=== PATIENT | female | born 1945 | race Caucasian/White ===

== ENCOUNTER 2016-12-06 16:33 | Inpatient (IN) ==
--- NOTE | 2016-12-06 16:49 | Emergency Department Note ---
Disposition Clinical Impression: Deep vein thrombosis of lower extremity, Pneumonia, Dehydration, Anemia, GI bleed, Frail elderly, History of treatment for malignancy, CAD (coronary artery disease) Disposition: Admitted As Inpatient Referrals: NO,PCP [Primary Care Provider] - Forms: ED Satisfaction Letter General Adult HPI - General Chief complaint: ED Extremity Problem,Nontraumatic Stated complaint: ble Time Seen by Provider: 12/06/16 16:49 Source: EMS Limitations: no limitations - History of Present Illness HPI Narrative: 70-year-old female with history of glioblastoma and brain surgery reports to the emergency department complaining of right lower extremity swelling. There is concern for possible DVT. The patient has not fallen or injured her right leg. There is no history of chest pain shortness of breath or coughing up blood. The patient used to take Lasix but does not now. There is no overt history of CHF. There is no history of anticoagulant therapy currently. The patient has had no abdominal pain vomiting or diarrhea. There is no history of coughing up blood or syncope. Chronic back pain is reported. The patient was seen in the ED yesterday and evaluated for her back pain. There is no history of confusion or difficulty moving the arms or legs independently. No urinary symptoms are reported or noted. The main concern today is the patient has had right lower extremity edema which has been progressive. They consulted with their [facility] physician who recommended the patient come to an ED. [facility] is currently on diversion so the patient was brought here via EMS. The patient has also had recurrent diarrhea no recent antibiotics, her stools have been black, she is noted to take iron. Pain Scale: 5 - Related Data Home Medications Medication Instructions Recorded Confirmed Acetaminophen [Tylenol] 500 - 1,000 mg PO Q6H PRN 12/06/16 12/06/16 Citalopram [CeleXA] 20 mg PO DAILY 12/06/16 12/06/16 Dexamethasone 2 mg PO BID 12/06/16 12/06/16 Dexlansoprazole [Dexilant] 30 mg PO DAILY 12/06/16 12/06/16 DiphenhydraMINE [Benadryl] 25 mg PO Q6HR PRN 12/06/16 12/06/16 Fenofibrate Nanocrystallized 145 mg PO HS 12/06/16 12/06/16 [Fenofibrate] Ferrous Sulfate 324 mg PO TIDWM 12/06/16 12/06/16 Gabapentin [Neurontin] 100 mg PO BID 12/06/16 12/06/16 Hydrochlorothiazide 25 mg PO DAILY 12/06/16 12/06/16 LORazepam [Ativan] 0.5 mg PO TID 12/06/16 12/06/16 LevETIRAcetam [Keppra] 1,000 mg PO BID 12/06/16 12/06/16 LevETIRAcetam [Keppra] 250 mg PO BID 12/06/16 12/06/16 Lisinopril [Zestril] 40 mg PO DAILY 12/06/16 12/06/16 Lomustine [Gleostine] 40 mg PO Q42D 12/06/16 12/06/16 Lomustine [Gleostine] 100 mg PO Q42D 12/06/16 12/06/16 Loperamide HCl [Imodium A-D] 2 mg PO Q4H PRN 12/06/16 12/06/16 OxyCODONE Immed Rel [Roxicodone 5 5 mg PO Q4HR PRN 12/06/16 12/06/16 MG] Oxycodone HCl/Acetaminophen 1 - 2 each PO Q4H PRN 12/06/16 12/06/16 [Percocet 5-325 mg Tablet] Polyethylene Glycol 3350 [MiraLAX 1 scoop PO DAILY 12/06/16 12/06/16 Powder Bulk 17.9 Oz] Simvastatin [Zocor] 40 mg PO QPM 12/06/16 12/06/16 Tizanidine HCl 4 mg PO TID PRN 12/06/16 12/06/16 Triamcinolone Acet 0.1% CRM 1 appl TP BID 12/06/16 12/06/16 [Kenalog] Allergies Allergy/AdvReac Type Severity Reaction Status Date / Time aspirin [From Norgesic] AdvReac Hallucinati Verified 12/06/16 16:48 ng caffeine [From Norgesic] AdvReac Hallucinati Verified 12/06/16 16:48 ng latex AdvReac Itching Verified 03/15/16 20:33 orphenadrine [From Norgesic] AdvReac Hallucinati Verified 12/06/16 16:48 ng Sulfa (Sulfonamide AdvReac Hives Verified 03/15/16 20:32 Antibiotics) All systems ED: reviewed and negative except as stated. Past Medical History - Past Medical History Medical history: Reports: cancer, hyperlipidemia, hypertension, myocardial infarction Psychiatric history: Reports: anxiety, bipolar, depression - Social History Smoking Status: Current every day smoker Smokeless Tobacco Status: No Alcohol use: Reports: none Drug use: Reports: none Physical Exam - General Limitations: no limitations General appearance: alert, in no apparent distress - Head Head exam: other (Patient is wearing a head covering) - Eye Eye exam: Present: normal appearance, PERRL, EOMI. Absent: scleral icterus, conjunctival injection, miosis, mydriasis - ENT ENT exam: normal exam, normal oropharynx, mucous membranes moist, TM's normal bilaterally, normal external ear exam - Neck Neck exam: Present: normal inspection, full ROM, trachea midline - Chest Chest inspection: Present: symmetric chest wall rise. Absent: tenderness - Respiratory Respiratory exam: Present: normal lung sounds bilaterally. Absent: respiratory distress - Cardiovascular Cardiovascular exam: Present: regular rate, normal rhythm, normal heart sounds - Abdominal Exam Abdominal exam: Present: soft, Non-Tender, normal bowel sounds. Absent: tenderness, distention, guarding, rebound, rigidity - Rectal Exam Hospitality Director present during exam: Yes Rectal exam: Present: normal rectal tone, black stool - Extremities Exam Extremities exam: Present: full ROM, tenderness, normal capillary refill, calf tenderness, other (All 4 extremities are warm and well perfused without cyanosis there is a full range of motion in the major joints without evidence of trauma no evidence of neuromuscular or neurovascular compromise. The right lower extremity is swollen versus the left.) - Expanded Lower Extremity Exam Lower leg exam: Present: Homans' sign (Right side pain and swelling no redness) Neurovascular/Tendon exam: Absent: motor deficit, sensory deficit, tendon deficit, extremity cold to touch, pallor - Back Exam Back exam: Present: normal inspection, full ROM, paraspinal tenderness. Absent : CVA tenderness (R), CVA tenderness (L), vertebral tenderness - Neurological Exam Neurological exam: Present: alert, oriented X3, CN II-XII intact. Absent: motor sensory deficit - Psychiatric Psychiatric exam: Present: normal affect, normal mood - Skin Skin exam: Present: warm, dry, intact, normal color. Absent: rash, cyanosis, diaphoresis, erythema, pallor, mottled Course Vital Signs Temperature 98.7 F 12/06/16 16:35 Pulse Rate 93 12/06/16 16:35 Respiratory Rate 11 12/06/16 16:35 Blood Pressure 90/53 12/06/16 16:35 O2 Sat by Pulse Oximetry 96 12/06/16 16:35 Temperature 98.7 F 12/06/16 16:35 Pulse Rate 93 12/06/16 16:35 Respiratory Rate 11 12/06/16 16:35 Blood Pressure 90/53 12/06/16 16:35 O2 Sat by Pulse Oximetry 96 12/06/16 16:35 Oxygen Delivery Oxygen Delivery Room Air Medical Decision Making - MDM Narrative Medical decision making narrative: The patient has a long opacity on chest x-ray, blood cultures were sent, antibiotic ordered. The patient's testing indicates dehydration, she was hypotensive and has an elevated BUN and creatinine versus yesterday, IV fluids were given. The patient's DVT study indicates right lower extremity DVT. The patient is anemic, and complains of black stool, she was heme positive. Gastritis or GI bleed is certainly in the differential. Protonix IV was ordered. Based on the patient's old will acute findings including dehydration, acute kidney injury, possible GI bleed, DVT, anemia, lung infiltrate concerning for pneumonitis, age, and history of malignancy, I thought it would be appropriate to admit the patient to the hospital. The patient is currently stable. I have consulted with the hospitalist on-call. - Lab Data Lab results reviewed: Yes I reviewed the patient's lab results. Result diagrams: 12/06/16 17:10 12/06/16 17:10 Lab Results 12/06/16 12/06/16 12/06/16 Range/Units 17:10 17:10 17:10 WBC 11.6 H (4.3-11.1) K/mcL RBC 3.20 L (3.82-4.97) M/mcL Hgb 10.3 L (11.5-15.4) g/dL Hct 30.1 L (35.3-44.9) % MCV 94.1 (83.0-100.0) fL MCH 32.2 (28.0-33.3) pg MCHC 34.2 (31.6-35.5) g/dL RDW 15.9 H (11.5-14.5) % Plt Count 189 (140-400) K/mcL MPV 10.2 (9.4-12.4) fL Immature Gran % 0.7 (0-4) % Seg Neutrophils % 87.1 % Lymphocytes % 4.0 % Monocytes % 7.8 % Eosinophils % 0.3 % Basophils % 0.1 % Neutrophils # 10.2 H (1.6-8.9) K/mcL Lymphocytes # 0.5 L (0.6-4.6) K/mcL Monocytes # 0.9 (0.0-1.3) K/mcL Eosinophils # 0.0 (0.0-0.6) K/mcL Basophils # 0.0 (0.0-0.2) K/mcL PT (9.4-12.1) Seconds INR APTT (26.0-36.0) Seconds Sodium 133 L (136-145) mEq/L Potassium 3.8 (3.5-4.5) mEq/L Chloride 99 (98-109) mEq/L Carbon Dioxide 23 (19-29) mEq/L BUN 38 H D (7-20) mg/dL Creatinine 2.27 H D (0.57-1.11) mg/dL Est GFR ( Amer) 26 L (> 60) Est GFR (Non-Af Amer) 21 L (> 60) BUN/Creatinine Ratio 17 (6-26) Glucose 114 H (70-99) mg/dL Calculated Osmolality 286 (280-300) Lactic Acid (0.5-2.2) mmol/L Calcium 9.3 (8.6-10.8) mg/dL Total Bilirubin 0.5 (0.2-1.2) mg/dL Direct Bilirubin 0.2 (0.0-0.5) mg/dL Indirect Bilirubin 0.3 (0.0-1.2) mg/dL AST 15 (5-34) Units/L ALT 20 (0-55) Units/L Alkaline Phosphatase 58 (38-126) Units/L Troponin I 0.01 (0-0.03) ng/mL B-Natriuretic Peptide (0-100) pg/mL Serum Total Protein 6.7 (6.0-8.3) g/dL Albumin 3.4 L (3.5-5.0) g/dL Globulin 3.3 (2.4-3.5) g/dL Albumin/Globulin Ratio 1.0 L (1.1-2.2) Stool Occult Blood (Negative) 12/06/16 12/06/16 12/06/16 Range/Units 17:10 17:10 17:43 WBC (4.3-11.1) K/mcL RBC (3.82-4.97) M/mcL Hgb (11.5-15.4) g/dL Hct (35.3-44.9) % MCV (83.0-100.0) fL MCH (28.0-33.3) pg MCHC (31.6-35.5) g/dL RDW (11.5-14.5) % Plt Count (140-400) K/mcL MPV (9.4-12.4) fL Immature Gran % (0-4) % Seg Neutrophils % % Lymphocytes % % Monocytes % % Eosinophils % % Basophils % % Neutrophils # (1.6-8.9) K/mcL Lymphocytes # (0.6-4.6) K/mcL Monocytes # (0.0-1.3) K/mcL Eosinophils # (0.0-0.6) K/mcL Basophils # (0.0-0.2) K/mcL PT 12.3 H (9.4-12.1) Seconds INR 1.1 APTT 27.5 (26.0-36.0) Seconds Sodium (136-145) mEq/L Potassium (3.5-4.5) mEq/L Chloride (98-109) mEq/L Carbon Dioxide (19-29) mEq/L BUN (7-20) mg/dL Creatinine (0.57-1.11) mg/dL Est GFR ( Amer) (> 60) Est GFR (Non-Af Amer) (> 60) BUN/Creatinine Ratio (6-26) Glucose (70-99) mg/dL Calculated Osmolality (280-300) Lactic Acid 1.0 (0.5-2.2) mmol/L Calcium (8.6-10.8) mg/dL Total Bilirubin (0.2-1.2) mg/dL Direct Bilirubin (0.0-0.5) mg/dL Indirect Bilirubin (0.0-1.2) mg/dL AST (5-34) Units/L ALT (0-55) Units/L Alkaline Phosphatase (38-126) Units/L Troponin I (0-0.03) ng/mL B-Natriuretic Peptide < 10 (0-100) pg/mL Serum Total Protein (6.0-8.3) g/dL Albumin (3.5-5.0) g/dL Globulin (2.4-3.5) g/dL Albumin/Globulin Ratio (1.1-2.2) Stool Occult Blood (Negative) 12/06/16 Range/Units 18:10 WBC (4.3-11.1) K/mcL RBC (3.82-4.97) M/mcL Hgb (11.5-15.4) g/dL Hct (35.3-44.9) % MCV (83.0-100.0) fL MCH (28.0-33.3) pg MCHC (31.6-35.5) g/dL RDW (11.5-14.5) % Plt Count (140-400) K/mcL MPV (9.4-12.4) fL Immature Gran % (0-4) % Seg Neutrophils % % Lymphocytes % % Monocytes % % Eosinophils % % Basophils % % Neutrophils # (1.6-8.9) K/mcL Lymphocytes # (0.6-4.6) K/mcL Monocytes # (0.0-1.3) K/mcL Eosinophils # (0.0-0.6) K/mcL Basophils # (0.0-0.2) K/mcL PT (9.4-12.1) Seconds INR APTT (26.0-36.0) Seconds Sodium (136-145) mEq/L Potassium (3.5-4.5) mEq/L Chloride (98-109) mEq/L Carbon Dioxide (19-29) mEq/L BUN (7-20) mg/dL Creatinine (0.57-1.11) mg/dL Est GFR ( Amer) (> 60) Est GFR (Non-Af Amer) (> 60) BUN/Creatinine Ratio (6-26) Glucose (70-99) mg/dL Calculated Osmolality (280-300) Lactic Acid (0.5-2.2) mmol/L Calcium (8.6-10.8) mg/dL Total Bilirubin (0.2-1.2) mg/dL Direct Bilirubin (0.0-0.5) mg/dL Indirect Bilirubin (0.0-1.2) mg/dL AST (5-34) Units/L ALT (0-55) Units/L Alkaline Phosphatase (38-126) Units/L Troponin I (0-0.03) ng/mL B-Natriuretic Peptide (0-100) pg/mL Serum Total Protein (6.0-8.3) g/dL Albumin (3.5-5.0) g/dL Globulin (2.4-3.5) g/dL Albumin/Globulin Ratio (1.1-2.2) Stool Occult Blood Positive A (Negative) - Radiology Data Radiology results reviewed: Yes I reviewed the patient's radiology results.
[2016-12-06] MEDS ORDERED: 0.9 % Sodium Chloride 1,000 ML IVC ONE ×2 (17:07→19:20)
[2016-12-06 17:26] LABS: Basophils % 0.1 %; Eosinophils % 0.3 %; Hematocrit 30.1 % (35.3-44.9); Hemoglobin 10.3 g/dL (11.5-15.4); Immature Granulocytes % 0.7 % (0-4); Lymphocytes # 0.5 K/mcL (0.6-4.6); Mean Corpuscular HGB Conc 34.2 g/dL (31.6-35.5); Mean Corpuscular Hemoglobin 32.2 pg (28.0-33.3); Mean Corpuscular Volume 94.1 fL (83.0-100.0); Mean Platelet Volume 10.2 fL (9.4-12.4); Monocytes # 0.9 K/mcL (0.0-1.3); Monocytes % 7.8 %; Neutrophils # 10.2 K/mcL (1.6-8.9); Platelet Count 189 K/mcL (140-400); Red Cell Distribution Width 15.9 % (11.5-14.5); Segmented Neutrophils % 87.1 %
[2016-12-06 17:33] LABS: INR 1.1; Prothrombin Time 12.3 Seconds (9.4-12.1)
[2016-12-06 17:35] LABS: Activated Partial Thrombo Time 27.5 Seconds (26.0-36.0)
[2016-12-06 17:44] LABS: Albumin 3.4 g/dL (3.5-5.0); Bilirubin,Direct 0.2 mg/dL (0.0-0.5); Bilirubin,Indirect 0.3 mg/dL (0.0-1.2); Bilirubin,Total 0.5 mg/dL (0.2-1.2); Calcium 9.3 mg/dL (8.6-10.8); Globulin 3.3 g/dL (2.4-3.5); Potassium 3.8 mEq/L (3.5-4.5); Total Protein 6.7 g/dL (6.0-8.3)
[2016-12-06] MEDS ORDERED: Levofloxacin 750 MG/150 ML 750 MG/150 ML BAG IVPB ONE (18:55)
[2016-12-06] MEDS ORDERED: Pantoprazole 80 MG in 0.9 % Sodium Chloride 50 ML IVPB ONE (18:56)
[2016-12-06] MEDS ORDERED: *HR* Promethazine 25 MG/ML VIAL IVP PRN (22:41)
[2016-12-06] MEDS ORDERED: *HR* OxyCODONE Immed Rel 5 MG TABLET PO PRN (22:41)
[2016-12-06] MEDS ORDERED: Naloxone 0.4 MG/ML INJ IVP PRN (22:41)
[2016-12-06] MEDS ORDERED: Albuterol 2.5 MG/3 ML NEBULIZER IH PRN (22:41)
--- NOTE | 2016-12-06 22:41 | Internal Med History&Physical ---
Date of Encounter: 12/06/16 Time of Encounter: 23:00 Assessment and Plan (1) Glioblastoma multiforme of brain Current visit: Yes Status: Acute . (2) Iron deficiency anemia Current visit: Yes Status: Acute . Qualifiers: Iron deficiency anemia type: unspecified iron deficiency Qualified Code(s) : D50.9 - Iron deficiency anemia, unspecified (3) Fecal occult blood test positive Current visit: Yes Status: Acute . (4) Obesity (BMI 30-39.9) Current visit: Yes Status: Chronic . (5) Anemia Current visit: Yes Status: Chronic . Qualifiers: Anemia type: unspecified type Qualified Code(s): D64.9 - Anemia, unspecified (6) CAD (coronary artery disease) Current visit: Yes Status: Chronic . Qualifiers: Coronary Disease-Associated Artery/Lesion type: [place] artery [place] vs. transplanted heart: [place] heart Associated angina: angina presence unspecified Qualified Code(s): I25.10 - Atherosclerotic heart disease of [place] coronary artery without angina pectoris (7) Deep vein thrombosis of lower extremity Current visit: Yes Status: Acute . Qualifiers: Affected thrombotic vein of extremity: unspecified vein of extremity Laterality: bilateral Chronicity: acute Qualified Code(s): I82.403 - Acute embolism and thrombosis of unspecified deep veins of lower extremity, bilateral (8) History of treatment for malignancy Current visit: Yes Status: Acute . (9) Acute kidney injury superimposed on CKD Current visit: Yes Status: Acute . (10) Status post craniectomy Current visit: Yes Status: Acute . (11) Dehydration Current visit: Yes Status: Acute . (12) Frail elderly Current visit: Yes Status: Acute . (13) S/P IVC filter Current visit: Yes Status: Acute . (14) At risk for accident in home Current visit: Yes Status: Acute . (15) At risk for acid-base imbalance Current visit: Yes Status: Acute . (16) At risk for activity intolerance Current visit: Yes Status: Acute . (17) At risk for acute confusion Current visit: Yes Status: Acute . (18) At risk for acute ischemic cardiac event Current visit: Yes Status: Acute . Internal Medicine - H&P: HPI Chief complaint: Pain and swelling right lower leg Admitted From: Emergency Dept Plans for Post Hospital Care: Home History of present illness: Ms. Ferrari is a 70 year old female history significant for Glioblastoma multiforme s/p craniectomyx2/radiation tx/chemotherapy, seizure disorder, hypertension, dyslipidemia, depression-anxiety/bipolar disorder, GERD, iron deficiency, malignant pain syndrome, constipation, bilteral PEs, gastrocnemius DVTs, s/p IVC filter placement, CAD/AMIs, OBESITY, solitary Lung nodule, left rib fractures s/p mech fall, chr LBP/ MSK pain synd, nicotine dependency The patient was visited and interviewed and examined. The patient is admitted to [facility] via the emergency department she presents with complaint of pain and swelling of the right lower extremity. History is significant for September 2016 diagnosis of glioblastoma multiforme at [facility]. At presentation she was also found to have small bilateral pulmonary emboli as well as bilateral lower extremity gastrocnemius associated DVTs. Given the complexity of her presentation was opted at that time for inferior vena cava filter placement. She has not been on any chronic anticoagulation therapy. Current findings of DVT in the ED tonight likely correspondence representative of chronic persistent disease. Findings in the ED: Temperature 97.7 pulse 93 respirations 11-14 BP 90/53. O2 saturation 96% room air. WBC 11.6 hemoglobin 10.3. RDW 15.9. Platelets 189, 000. Differential showed increase in neutrophils. Metabolic panel noted sodium 133 BUN 38 creatinine 2.7. GFR 21. Glucose 114 osmolality 286. Hepatic function normal. Albumin 3.4 total 6.7. Troponin 0.01. BNP less than 10. PT 12.3 INR 1.1 PTT 27.5. Lactic acid 1.0. Stool occult blood positive. Chest x-ray showed left base opacity. Atelectasis versus infection. No pulmonary edema. No pneumothorax no pleural effusion. (09/22/16 CT a chest demonstrated tiny left lower lobe pulmonary embolism age indeterminate. Acute left seventh and eighth and ninth rib fractures with associated mild subcutaneous emphysema. Small left pleural effusion without pneumothorax. CT head scan post surgical changes secondary to high right frontal glial blastoma resection. Punctate focus of intraparenchymal hemorrhage adjacent to the surgical site. Likely expected postoperative changes. Status post right frontoparietal craniotomy. No acute fracture. Opacification inferior left mastoid air cells. CT cervical spine demonstrates no acute findings. This was cervical lordosis. Minimal cervical spine degenerative changes. Moderate to severe DJD at C5-C6. Bone demineralization. CT abdomen and pelvis demonstrated no evidence of intra-abdominal pelvic injury. Multiple left rib fractures. No basilar pneumothorax. Small amount of pleural fluid likely correspondence representative of small hydrocodone thorax. Soft tissue emphysema on the chest wall. Diverticulosis coli of the colon. Gallbladder surgically absent. No evidence of solid organ laceration or contusion.) Preliminary impression suggests chronic persistent lower extremity DVT(s) s/p IVC filter placement in patient with known malignant Glioblastoma multiforme s/ p resectionx2/WBRT/chemotx now undergoing adjuvant chemotherapy. Patient has not been on anticoagulation therapy and given recent extensive surgeries, malignancy and ongoing chemotherapy she in not a candidate. A supportive pain management measures will be provided. Chest x-ray suggested a left lower lobe opacity which will warrant further investigation. Patient is mildly hypotensive. Systemic inflammatory response syndrome criteria met at the time at admission. The patient presents risk for acute clinical decline and morbidity given her advanced age, presenting complaints, findings and comorbidities. Workup and treatment will progress comprehensively. Cumulative laboratory and radiographic data base was reviewed, considered and discussed. Pertinent ancillary medical records including ECW and PCI documentation was reviewed and considered. Given the patient's presenting concerns, past medical history, clinical findings and symptoms, she is admitted at this time will undergo further evaluation and disposition. Orders were written as per the computerized physician brake shoe rebuilder system.......................................................................... .................... Consultative opinions will be sought as clinical circumstances justify. Pain management needs will be addressed. Laboratory and radiographic data base will be updated as appropriate. Studies include: Cultures blood urine sputum, PT/INR,APTT, Ddimer, UA, cardiac injury panel, BNP, metabolic and hematologic panel, magnesium, phosphorus, ionized calcium, thyroid panel, lipid profile, A1c, C-peptide, CRP sed rate, respiratory infection profile, respiratory virus panel, blood gas, lactic acid, serologies, etc. Precautions: Aspiration, fall, delirium protocol/surveillance initiated. Telemetry with continuous hemodynamic monitoring and pulse oximetry initiated. Orthostatic vital signs. Empiric antibody coverage: Intravenous Rocephin and azithromycin pending culture data. Special studies: CT chest, chest x-ray, telemetry, EKG, LE venous duplex. Pulmonary toilet: Incentive spirometry, aerosol bronchodilator, mucolytic, antitussive, supplemental oxygen. Corticosteroid therapy. CPAP/BiPAP supplemental oxygen delivery. Aerosol Mucomyst therapy. Fluid and electrolyte repletion efforts will proceed. Careful attention to fluid balance and renal recovery will be emphasized. Avoidance of nephrotoxic exposure and adverse drug drug interaction in the setting of impaired renal function will be monitored closely. Acute coronary syndrome protocol/surveillance initiated. DVT and PUD prophylaxis initiated: PPI therapy, intermittent pneumatic pumps/ foot. Subcutaneous heparin was held due to recent crainiectomiesx2 and FOBT+. Early ambulation will be encouraged. Immunization updates recommended. Influenza and pneumococcal vaccinations as part of ongoing preventative healthcare recommendations strongly recommended. Smoking cessation counseling briefly addressed. Patient accepts nicotine substitution during this hospitalization.. Advanced care directive discussion briefly addressed. Patient does not declare any healthcare restrictions at this time. Cardiovascular risk appraisal and cardiovascular risk reduction efforts will be emphasized. Physical /occupational therapy consulted to evaluate patient's functional capacity and progress mobility as her circumstances permit. Nutrition/dietary education counseling may be considered as circumstances justify. Outpatient medication schedules will be reviewed, confirmed and facilitated as appropriate. Reconciliation of home treatments including adjustments, substitutions and reintroduction into the treatment regimen will address necessary maintenance therapies for chronic pre-existing medical conditions. Plan of care has been reviewed and discussed in detail with the patient. Questions addressed. Hospital course dictated clinical findings, treatment response and potential consultative interventions. Patient is at risk risk for further acute clinical decline and morbidity due to her advanced age, frailty, chief complaints/findings and comorbidities. Condition is serious. Prognosis is guarded. CODE STATUS is reported as full. Past Med Surg Social Fam HX - Past Medical History Source: old records reviewed Medical history: arthritis, cancer, coronary artery disease, DVT, GERD, hyperlipidemia, hypertension, malignancy, myocardial infarction, pulmonary embolus, renal disease, seizures, other Psychiatric history: anxiety, bipolar, depression, other - Past Surgical History Surgical History: cancer surgery, other - Social History Smoking Status: Current every day smoker Packs per day: 1ppd Smokeless Tobacco Status: No Alcohol use: none Drug use: none Occupational status: retired Current living situation: With Family Activity Level: Independent ambulation, Mostly sedentary Recent Out of Country Travel Within the Last 8 Weeks: No Exposure or Possible Exposure to Illness During Travel: No Internal Medicine - H&P: Meds Acetaminophen [Tylenol] 500 - 1,000 mg PO Q6H PRN 12/06/16 [History] Citalopram [CeleXA] 20 mg PO DAILY 12/06/16 [History] Dexamethasone 2 mg PO BID 12/06/16 [History] Dexlansoprazole [Dexilant] 30 mg PO DAILY 12/06/16 [History] DiphenhydraMINE [Benadryl] 25 mg PO Q6HR PRN 12/06/16 [History] Fenofibrate Nanocrystallized [Fenofibrate] 145 mg PO HS 12/06/16 [History] Ferrous Sulfate 324 mg PO TIDWM 12/06/16 [History] Gabapentin [Neurontin] 100 mg PO BID 12/06/16 [History] Hydrochlorothiazide 25 mg PO DAILY 12/06/16 [History] LORazepam [Ativan] 0.5 mg PO TID 12/06/16 [History] LevETIRAcetam [Keppra] 1,000 mg PO BID 12/06/16 [History] LevETIRAcetam [Keppra] 250 mg PO BID 12/06/16 [History] Lisinopril [Zestril] 40 mg PO DAILY 12/06/16 [History] Lomustine [Gleostine] 40 mg PO Q42D 12/06/16 [History] Lomustine [Gleostine] 100 mg PO Q42D 12/06/16 [History] Loperamide HCl [Imodium A-D] 2 mg PO Q4H PRN 12/06/16 [History] OxyCODONE Immed Rel [Roxicodone 5 MG] 5 mg PO Q4HR PRN 12/06/16 [History] Oxycodone HCl/Acetaminophen [Percocet 5-325 mg Tablet] 1 - 2 each PO Q4H PRN [History] Polyethylene Glycol 3350 [MiraLAX Powder Bulk 17.9 Oz] 1 scoop PO DAILY [History] Simvastatin [Zocor] 40 mg PO QPM 12/06/16 [History] Tizanidine HCl 4 mg PO TID PRN 12/06/16 [History] Triamcinolone Acet 0.1% CRM [Kenalog] 1 appl TP BID 12/06/16 [History] Allergies aspirin [From Norgesic] Adverse Reaction (Verified 12/06/16 16:48) Hallucinating caffeine [From Norgesic] Adverse Reaction (Verified 12/06/16 16:48) Hallucinating latex Adverse Reaction (Verified 03/15/16 20:33) Itching orphenadrine [From Norgesic] Adverse Reaction (Verified 12/06/16 16:48) Hallucinating Sulfa (Sulfonamide Antibiotics) Adverse Reaction (Verified 03/15/16 20:32) Hives ROS unobtainable: due to mental status All Systems PM: A 10-system review of systems was performed and is negative for pertinent findings except as documented above in the HPI. He should not presents mildly encephalopathic and is a limited/poor historian of circumstances and events. Details of this collected from cumulative records, family and EMS/ ED triage. - Constitutional Constitutional: as per HPI, no chills, no fever(s), no night sweats - EENT Eyes: as per HPI, no change in vision, no discharge, no pain, no photophobia Ears: as per HPI, no ear discharge, no ear pain, no tinnitus Nose, mouth and throat: as per HPI, no dysphagia, no nasal discharge, no neck pain, no sore throat - Cardiovascular Cardiovascular ROS IM: as per HPI, no chest pain, no diaphoresis, no dyspnea, no lightheadedness, no palpitations, no syncope - Respiratory Respiratory: as per HPI, no cough, no dyspnea, no wheezing, no excessive phlegm production - Gastrointestinal Gastrointestinal: as per HPI, no abdominal pain, no diarrhea, no hematemesis, no hematochezia, no melena, no nausea, no vomiting - Genitourinary Genitourinary: as per HPI, no change in urinary stream, no dysuria, no flank pain, no hematuria - Musculoskeletal Musculoskeletal ROS IM: as per HPI, other, no numbness, no tingling - Integumentary Integumentary IM: other, no rash, no unusual bruising - Neurological Neurological ROS: as per HPI, other, no confusion, no convulsions, no focal weakness, no numbness, no tingling, no tremor(s) - Psychiatric Psychiatric: as per HPI - Endocrine Endocrine IM: as per HPI - Hematologic/Lymphatic Hematologic/Lymphatic: as per HPI, other, no easy bruising - Allergic/Immunologic Allergic/Immunologic: as per HPI - Constitutional Vitals: Temp Pulse Resp BP Pulse Ox 98.6 F 91 18 103/66 96 12/06/16 21:26 12/06/16 21:26 12/06/16 21:26 12/06/16 21:26 12/06/16 21:26 General appearance: Present: cooperative, A&O X 2, mild distress. Absent: answers questions appropriately - Head Head exam: Present: atraumatic, normocephalic - Eye Eye exam: Present: EOMI, PERRL, conjuntiva pink, sclera anicteric Pupils: Present: normal accommodation, PERRL - ENT ENT exam: Present: mucous membranes moist, normal oropharynx - Neck Neck exam general surgery: Present: full ROM, supple, trachea midline. Absent: lymphadenopathy - Respiratory Respiratory exam: Present: decreased breath sounds, CTAB. Absent: accessory muscle use, rales, rhonchi, wheezes - Cardiovascular Cardiovascular exam: Present: distant heart sounds, RRR, +S1, +S2. Absent: diastolic murmur, gallop, rubs, systolic murmur - GI/Abdominal GI/Abdominal exam: Present: normal bowel sounds, soft, no peritoneal signs. Absent: distended, tenderness - Extremities Exam Extremities exam: Present: full ROM, pedal edema, tenderness, warm, radial pulses palpable and symetrical. Absent: calf tenderness, cyanotic - Neurological Exam Neurological exam: Present: alert, altered, CN II-XII intact, no focal deficits. Absent: oriented X3, pronater drift, facial droop, speech deficit - Psychiatric Psychiatric exam: Present: normal affect, normal mood - Skin Skin exam: Present: dry, intact, warm Internal Med - H&P Results - Labs CBC & Chem 7: 12/07/16 00:50 12/07/16 00:50 - Impressions Vital Signs Temp Pulse Resp BP Pulse Ox 12/06/16 21:26 98.6 F 91 18 103/66 96 12/06/16 21:05 0 0/0 12/06/16 19:51 86 12 95/57 91 L 12/06/16 16:35 98.7 F 93 11 90/53 96 Intake and Output 12/06/16 12/06/16 12/06/16 07:59 15:59 23:59 Intake Total 1000 / 1000 Balance 1000 / 1000 Intake: IV Fluids 1000 / 1000 0.9 % Sodium Chloride 1, 1000 / 1000 000 ML @ 3750 mls/hr IVC .Q16M ONE Rx#:[id number] Other: Weight 84.397 kg Patient Weight 12/06/16 23:59 Weight 84.397 kg Short CBC 12/06/16 Range/Units 17:10 WBC 11.6 H (4.3-11.1) K/mcL Hgb 10.3 L (11.5-15.4) g/dL Hct 30.1 L (35.3-44.9) % Plt Count 189 (140-400) K/mcL Neutrophils # 10.2 H (1.6-8.9) K/mcL BMP 12/06/16 Range/Units 17:10 Sodium 133 L (136-145) mEq/L Potassium 3.8 (3.5-4.5) mEq/L Chloride 99 (98-109) mEq/L Carbon Dioxide 23 (19-29) mEq/L BUN 38 H D (7-20) mg/dL Creatinine 2.27 H D (0.57-1.11) mg/dL Glucose 114 H (70-99) mg/dL Calcium 9.3 (8.6-10.8) mg/dL Cardiac Enzymes 12/06/16 Range/Units 17:10 Troponin I 0.01 (0-0.03) ng/mL Liver Function 12/06/16 Range/Units 17:10 Total Bilirubin 0.5 (0.2-1.2) mg/dL Direct Bilirubin 0.2 (0.0-0.5) mg/dL AST 15 (5-34) Units/L ALT 20 (0-55) Units/L Alkaline Phosphatase 58 (38-126) Units/L Albumin 3.4 L (3.5-5.0) g/dL Allergies Allergy/AdvReac Type Severity Reaction Status Date / Time aspirin [From Norgesic] AdvReac Hallucinati Verified 12/06/16 16:48 ng caffeine [From Norgesic] AdvReac Hallucinati Verified 12/06/16 16:48 ng latex AdvReac Itching Verified 03/15/16 20:33 orphenadrine [From Norgesic] AdvReac Hallucinati Verified 12/06/16 16:48 ng Sulfa (Sulfonamide AdvReac Hives Verified 03/15/16 20:32 Antibiotics) Laboratory Results WBC 11.6 K/mcL (4.3-11.1) H 12/06/16 17:10 RBC 3.20 M/mcL (3.82-4.97) L 12/06/16 17:10 Hgb 10.3 g/dL (11.5-15.4) L 12/06/16 17:10 Hct 30.1 % (35.3-44.9) L 12/06/16 17:10 MCV 94.1 fL (83.0-100.0) 12/06/16 17:10 MCH 32.2 pg (28.0-33.3) 12/06/16 17:10 MCHC 34.2 g/dL (31.6-35.5) 12/06/16 17:10 RDW 15.9 % (11.5-14.5) H 12/06/16 17:10 Plt Count 189 K/mcL (140-400) 12/06/16 17:10 MPV 10.2 fL (9.4-12.4) 12/06/16 17:10 Immature Gran % 0.7 % (0-4) 12/06/16 17:10 Seg Neutrophils % 87.1 % 12/06/16 17:10 Lymphocytes % 4.0 % 12/06/16 17:10 Monocytes % 7.8 % 12/06/16 17:10 Eosinophils % 0.3 % 12/06/16 17:10 Basophils % 0.1 % 12/06/16 17:10 Neutrophils # 10.2 K/mcL (1.6-8.9) H 12/06/16 17:10 Lymphocytes # 0.5 K/mcL (0.6-4.6) L 12/06/16 17:10 Monocytes # 0.9 K/mcL (0.0-1.3) 12/06/16 17:10 Eosinophils # 0.0 K/mcL (0.0-0.6) 12/06/16 17:10 Basophils # 0.0 K/mcL (0.0-0.2) 12/06/16 17:10 PT 12.3 Seconds (9.4-12.1) H 12/06/16 17:10 INR 1.1 12/06/16 17:10 APTT 27.5 Seconds (26.0-36.0) 12/06/16 17:10 Sodium 133 mEq/L (136-145) L 12/06/16 17:10 Potassium 3.8 mEq/L (3.5-4.5) 12/06/16 17:10 Chloride 99 mEq/L (98-109) 12/06/16 17:10 Carbon Dioxide 23 mEq/L (19-29) 12/06/16 17:10 BUN 38 mg/dL (7-20) H D 12/06/16 17:10 Creatinine 2.27 mg/dL (0.57-1.11) H D 12/06/16 17:10 Est GFR ( Amer) 26 (> 60) L 12/06/16 17:10 Est GFR (Non-Af Amer) 21 (> 60) L 12/06/16 17:10 BUN/Creatinine Ratio 17 (6-26) 12/06/16 17:10 Glucose 114 mg/dL (70-99) H 12/06/16 17:10 Calculated Osmolality 286 (280-300) 12/06/16 17:10 Lactic Acid 1.0 mmol/L (0.5-2.2) 12/06/16 17:43 Calcium 9.3 mg/dL (8.6-10.8) 12/06/16 17:10 Total Bilirubin 0.5 mg/dL (0.2-1.2) 12/06/16 17:10 Direct Bilirubin 0.2 mg/dL (0.0-0.5) 12/06/16 17:10 Indirect Bilirubin 0.3 mg/dL (0.0-1.2) 12/06/16 17:10 AST 15 Units/L (5-34) 12/06/16 17:10 ALT 20 Units/L (0-55) 12/06/16 17:10 Alkaline Phosphatase 58 Units/L (38-126) 12/06/16 17:10 Troponin I 0.01 ng/mL (0-0.03) 12/06/16 17:10 B-Natriuretic Peptide < 10 pg/mL (0-100) 12/06/16 17:10 Serum Total Protein 6.7 g/dL (6.0-8.3) 12/06/16 17:10 Albumin 3.4 g/dL (3.5-5.0) L 12/06/16 17:10 Globulin 3.3 g/dL (2.4-3.5) 12/06/16 17:10 Albumin/Globulin Ratio 1.0 (1.1-2.2) L 12/06/16 17:10 Stool Occult Blood Positive (Negative) A 12/06/16 18:10 Impressions Chest X-Ray 12/06/16 17:06 IMPRESSION: 1. Left base opacity may represent atelectasis versus infection. Correlate with clinical symptoms. 2. No pulmonary edema. D/ / 12/06/2016 18:13:34 Karly Dodson MD / panda Interpreting Provider: Karly Dodson MD
[2016-12-06] MEDS ORDERED: *HR* Heparin 5,000 UNIT/ML VIAL IVP PRN ×2 (22:49)
[2016-12-06] MEDS ORDERED: Benzonatate 100 MG CAPSULE PO PRN (22:49)
[2016-12-06] MEDS ORDERED: *HR* Heparin 5,000 UNIT/ML VIAL IVP ONE (22:49)
[2016-12-06] MEDS ORDERED: 0.9 % Sodium Chloride 500 ML IVC ONE (22:55)
[2016-12-06] MEDS ORDERED: Heparin 25,000 UNIT/500 ML D5W 25,000 UNIT/500 ML MLS IVC SCH (23:00)
[2016-12-06] MEDS ORDERED: tiZANidine 4 MG TABLET PO PRN (23:41)
[2016-12-07] MEDS: Ipratropium/Albuterol Neb 3 ML IH SCH ×5 (00:14→22:07)
[2016-12-07] MEDS: Nicotine 21 MG PATCH.TD24 TD SCH ×2 (00:45→08:38)
[2016-12-07 01:06] LABS: Hematocrit 26.2 % (35.3-44.9); Hemoglobin 8.8 g/dL (11.5-15.4); Mean Corpuscular HGB Conc 33.6 g/dL (31.6-35.5); Mean Corpuscular Hemoglobin 31.3 pg (28.0-33.3); Mean Corpuscular Volume 93.2 fL (83.0-100.0); Mean Platelet Volume 10.2 fL (9.4-12.4); Platelet Count 153 K/mcL (140-400); Red Blood Count 2.81 M/mcL (3.82-4.97); Red Cell Distribution Width 15.9 % (11.5-14.5)
[2016-12-07 01:14] LABS: INR 1.2; Prothrombin Time 13.1 Seconds (9.4-12.1)
[2016-12-07 01:17] LABS: Activated Partial Thrombo Time 25.6 Seconds (26.0-36.0)
[2016-12-07] MEDS: 0.9 % Sodium Chloride 1,000 ML IVC SCH ×2 (01:21→17:28)
[2016-12-07 01:22] LABS: Phosphorous 3.3 mg/dL (2.3-4.7)
[2016-12-07 01:29] LABS: Albumin 2.8 g/dL (3.5-5.0); Albumin/Globulin Ratio 0.9 (1.1-2.2); Bilirubin,Total 0.5 mg/dL (0.2-1.2); Calcium 8.5 mg/dL (8.6-10.8); Potassium 4.4 mEq/L (3.5-4.5); Total Protein 5.8 g/dL (6.0-8.3)
[2016-12-07] MEDS: *HR* Morphine 2 MG/ML SYRINGE IVP PRN (04:05)
--- NOTE | 2016-12-07 07:36 | Venous Imaging Report ---
LE Venous Duplex Patient Name:Claribel Ferrari Order Number:[id number] Procedure Date:12/06/2016 Date:1945ge:70 yrs Gender:Female Location:[facility] ED Room #: ER22 Washcloth Folder:Jodi Jack RDCS Referring MD:Jono Childress MD plug overwrap machine tender:None Reading MD:Ronnie Virk MD Primary Indications:Swelling of limb Secondary Indications: Risk Factors Yes/No Hx of Chemotherapy Yes Impressions: Acute deep venous thrombosis is present in the right distal iliac through popliteal vein. Acute superficial venous thrombosis is present in the right lesser saphenous vein. Normal contralateral common femoral vein. Recommendations: Test completed on 12/06/2016 at 6:48:00 pm. Critical findings reported to Dr Childress by phone at 6:50:00 pm on 12/06/2016 by Jodi Jack RDCS. Findings Venous Duplex Results: Right: Venous imaging of the lower extremity reveals full patency and normal vessel compressibility of the right posterior tibial, right peroneal and right great saphenous. Doppler signals in the evaluated veins were normal. There is an acute occlusive thrombus seen in the right distal iliac. It demonstrates an incompressible vein. Flow was continuous and it did not augment. There is an acute occlusive thrombus seen in the right common femoral. It demonstrates an incompressible vein. Flow was continuous and it did not augment. There is an acute occlusive thrombus seen in the right superficial femoral. It demonstrates an incompressible vein. Flow was continuous and it did not augment. There is an acute occlusive thrombus seen in the right popliteal. It demonstrates an incompressible vein. Flow was continuous and it did not augment. There is an acute occlusive thrombus seen in the right lesser saphenous. It demonstrates an incompressible vein. Flow was absent and it did not augment. Left: Venous imaging of the lower extremity reveals full patency and normal vessel compressibility of the left common femoral. Doppler signals in the evaluated veins were normal. Prior Study: No prior study available for comparison. Lower Extremity Venous Duplex Side Vein Compress Spontaneous Flow Augment Diameter (cm) Depth (cm) Right Distal Iliac None no Continuous no Right Common Femoral None no Continuous no Right Superficial Femoral None no Continuous no Right Popliteal None no Continuous no Right Posterior Tibial Normal Yes Phasic Yes Right Peroneal Normal Yes Phasic Yes Right Great Saphenous Normal Yes Phasic Yes Right Lesser Saphenous None no Absent no Left Common Femoral Normal Yes Phasic Yes Updated by Ronnie Virk MD on 12/07/2016 7:29:36 AM electronically signed on 12/07/2016 7:30:14 AM with status of Final
[2016-12-07] MEDS: levETIRAcetam 250 MG TABLET PO SCH ×4 (08:38→20:45)
[2016-12-07] MEDS: Lisinopril 20 MG TABLET PO SCH (08:39)
[2016-12-07] MEDS: Gabapentin 100 MG CAPSULE PO SCH ×2 (08:40→20:45)
[2016-12-07] MEDS: *HR* LORazepam 0.5 MG TABLET PO SCH ×3 (08:41→20:45)
[2016-12-07] MEDS ORDERED: predniSONE 20 MG TABLET PO SCH (09:00)
--- NOTE | 2016-12-07 09:53 | Electrocardiograph Report ---
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
[2016-12-07] MEDS ORDERED: Magnesium Sulfate 2 GM in D5% in Water 100 ML IVPB ONE (11:21)
--- NOTE | 2016-12-07 15:28 | Internal Med Progress Note ---
Date of Encounter: 12/07/16 Time of Encounter: 15:26 - Assessment and plan (1) Deep vein thrombosis of lower extremity Current Visit: Yes Status: Acute Assessment and plan: has chronic persistnet DVT 2/2 active cancer. not a candidate for AC given recent brain surgery 08/24 s/p IVC filter last admission. will continue to monitor, right leg elevation, no weight bearing at this time. need to treat the underlying cause which is the cancer. Qualifiers: Affected thrombotic vein of extremity: unspecified vein of extremity Laterality: bilateral Chronicity: acute Qualified Code(s): I82.403 - Acute embolism and thrombosis of unspecified deep veins of lower extremity, bilateral (2) GI bleed Current Visit: Yes Status: Acute Assessment and plan: occult blood is positive, patient is taking iron pills the son and the patinet is not aware about her last colonoscopy her hb has dropped today to 8.8 from 10. will repeat cbc tomm, GI consult for possible need of EGD. Qualifiers: GI bleed type/associated pathology: unspecified gastrointestinal hemorrhage type Qualified Code(s): K92.2 - Gastrointestinal hemorrhage, unspecified (3) Glioblastoma multiforme of brain Current Visit: Yes Status: Acute Assessment and plan: undergoing chemotheray at [facility]. desires to follow up at [place]. (4) S/P IVC filter Current Visit: Yes Status: Acute - Time Spent With Patient 25 - 35 minutes - Subjective Interval history: seen at the bedside, appears in no respiratory distress. Complains of right leg swelling and pain. doppler showed chronic persistent DVT, s/p IVC filter on her last admisiion denies chest pain , sob, says she has black stool but is on iron pills - Constitutional Vitals: Temp Pulse Resp BP Pulse Ox 98.8 F 84 16 113/84 97 12/07/16 11:01 12/07/16 11:01 12/07/16 11:01 12/07/16 11:12/07/16 11:01 General appearance: Present: cooperative, A&O X 2. Absent: answers questions appropriately Exam: - Head Head exam: Present: atraumatic, normocephalic - Eye Eye exam: Present: EOMI, PERRL, conjuntiva pink, sclera anicteric Pupils: Present: normal accommodation, PERRL - ENT ENT exam: Present: mucous membranes moist, normal oropharynx - Neck Neck exam general surgery: Present: full ROM, supple, trachea midline. Absent: lymphadenopathy - Respiratory Respiratory exam: Present: decreased breath sounds, CTAB. Absent: accessory muscle use, rales, rhonchi, wheezes - Cardiovascular Cardiovascular exam: Present: distant heart sounds, RRR, +S1, +S2. Absent: diastolic murmur, gallop, rubs, systolic murmur - GI/Abdominal GI/Abdominal exam: Present: normal bowel sounds, soft, no peritoneal signs. Absent: distended, tenderness - Extremities Exam Extremities exam: Present: full ROM, pedal edema, tenderness, warm, radial pulses palpable and symetrical. Absent: calf tenderness, cyanotic - Neurological Exam Neurological exam: Present: alert, altered, CN II-XII intact, no focal deficits. Absent: oriented X3, pronater drift, facial droop, speech deficit - Psychiatric Psychiatric exam: Present: normal affect, normal mood - Skin Skin exam: Present: dry, intact, warm Internal Medicine: Result - Labs CBC & Chem 7: 12/07/16 00:50 12/07/16 00:50 Labs: Short CBC 12/07/16 Range/Units 00:50 WBC 8.1 (4.3-11.1) K/mcL Hgb 8.8 L D (11.5-15.4) g/dL Hct 26.2 L (35.3-44.9) % Plt Count 153 (140-400) K/mcL BMP 12/07/16 00:50 Sodium 134 L Potassium 4.4 Chloride 102 Carbon Dioxide 23 BUN 37 H Creatinine 1.69 H Glucose 104 H Calcium 8.5 L Cardiac Enzymes 12/07/16 12/07/16 12/07/16 Range/Units 00:50 04:54 11:00 Troponin I 0.01 0.00 0.01 (0-0.03) ng/mL Liver Function 12/07/16 Range/Units 00:50 Total Bilirubin 0.5 (0.2-1.2) mg/dL AST 14 (5-34) Units/L ALT 18 (0-55) Units/L Alkaline Phosphatase 50 (38-126) Units/L Albumin 2.8 L (3.5-5.0) g/dL - ABG Interpretation ABG results: PT/INR, D-dimer PT 13.1 Seconds (9.4-12.1) H 12/07/16 00:50 - Impressions Impressions Chest CT 12/07/16 23:46 IMPRESSION: Mild pleural thickening and scarring in the left lung base adjacent to the remote fractures. Findings are improved compared to prior study. Mild bibasilar atelectasis. Minimal atelectasis versus scar in the lingula. D/ / Priscila Hernandez MD / Priscila Hernandez MD Interpreting Provider: Priscila Hernandez MD Consult Discharge Plan - Plan Referrals: NO,PCP [Primary Care Provider] -
[2016-12-07] MEDS: Fenofibrate 54 MG TABLET PO SCH (20:45)
[2016-12-07] MEDS ORDERED: Levofloxacin 500 MG/100 ML 500 MG/100 ML BAG IVPB SCH (21:00)
[2016-12-07] MEDS ORDERED: methylPREDNISolone 125 MG/2 ML VIAL IVP ONE (22:48)
[2016-12-08] MEDS: 0.9 % Sodium Chloride 1,000 ML IVC SCH ×3 (01:22→22:33)
[2016-12-08] MEDS: Ipratropium/Albuterol Neb 3 ML IH SCH ×2 (04:23→10:31)
[2016-12-08 04:26] LABS: Hematocrit 22.6 % (35.3-44.9); Hemoglobin 7.6 g/dL (11.5-15.4); Mean Corpuscular HGB Conc 33.6 g/dL (31.6-35.5); Mean Corpuscular Hemoglobin 31.8 pg (28.0-33.3); Mean Corpuscular Volume 94.6 fL (83.0-100.0); Mean Platelet Volume 10.7 fL (9.4-12.4); Platelet Count 149 K/mcL (140-400); Red Blood Count 2.39 M/mcL (3.82-4.97); Red Cell Distribution Width 16.2 % (11.5-14.5)
[2016-12-08 04:28] LABS: INR 1.2; Prothrombin Time 12.9 Seconds (9.4-12.1)
[2016-12-08 04:31] LABS: Activated Partial Thrombo Time 24.7 Seconds (26.0-36.0)
[2016-12-08] MEDS: *HR* LORazepam 0.5 MG TABLET PO SCH ×3 (07:34→20:59)
[2016-12-08] MEDS: Lisinopril 20 MG TABLET PO SCH (07:35)
[2016-12-08] MEDS: Gabapentin 100 MG CAPSULE PO SCH ×2 (07:35→20:58)
[2016-12-08] MEDS: levETIRAcetam 250 MG TABLET PO SCH ×4 (07:37→20:58)
[2016-12-08] MEDS: Nicotine 21 MG PATCH.TD24 TD SCH (07:37)
[2016-12-08] MEDS ORDERED: Ipratropium/Albuterol Neb 3 ML IH PRN (11:13)
--- NOTE | 2016-12-08 12:39 | Gastroenterology Consult Note ---
<Waylon Jacobs - Last Filed: 12/08/16 12:36> Date of Encounter: 12/08/16 Time of Encounter: 10:15 - Assessment and plan (1) Iron deficiency anemia Current Visit: Yes Status: Acute Assessment and plan: Hgb 10.3 on admission 7.6 this morning. FOBT positive on 12/06/2016. Patient states her last colonoscopy was [address] Kennedy in [place], and was instructed to follow-up in 5 years but never did. Continue to monitor CBC and transfuse PRBC as needed. Plan for EGD today and colonoscopy tomorrow. Following EGD today, clear liquid diet today, no red or purple. NPO at midnight. If unable tolerate NuLytely please use MiraLAX prep. If not clear by 6 AM, give 2 tap water enemas. Qualifiers: Iron deficiency anemia type: unspecified iron deficiency Qualified Code(s) : D50.9 - Iron deficiency anemia, unspecified (2) Fecal occult blood test positive Current Visit: Yes Status: Acute Assessment and plan: Plan for EGD today and colonoscopy tomorrow. (3) Glioblastoma multiforme of brain Current Visit: Yes Status: Acute - Time Spent With Patient Total time spent is greater than 50% in coordination of care (as documented) at patient's floor/unit and/or counseling patient: GI History of Present Illness - Data of Consult Patient: new to practice Consult date: 12/08/16 Requesting Physician: Lisbeth Lemon - Consult Narrative Reason for consult: Anemia History of present illness: Ms. Ferrari is a 70 year old female with PMHx of glioblastoma multiforme undergoing chemotherapy at [facility], seizure disorder, HTN, HLD, GERD, iron deficiency, constipation, bilateral PEs, DVTs presented to the ED with complaints of pain and swelling in the right lower extremity. In September 2016 patient was diagnosed with glioblastoma multiforme at [facility]. At presentation she was also found to have small bilateral PEs as well as bilateral LE DVTs. Inferior vena cava filter was placed. Doppler showed chronic persistent DVT. We were consulted for GI bleed. Patient reports black stool but is on iron pills. FOBT positive. Hgb 10.3 on admission 7.6 this AM. Procedures: Colonoscopy 02/13/[address] Bobo nonspecific inflammation at the rectosigmoid junction. EGD 02/12/[address] Bobo with mild nonspecific duodenitis. NSAIDs: None Anticoagulation: None Past Med Surg Social Fam HX - Past Medical History Medical history: arthritis, cancer, coronary artery disease, DVT, GERD, hyperlipidemia, hypertension, malignancy, myocardial infarction, pulmonary embolus, renal disease, seizures, other Psychiatric history: anxiety, bipolar, depression, other - Past Surgical History Surgical History: cancer surgery, other - Social History Smoking Status: Current every day smoker Packs per day: 1ppd Smokeless Tobacco Status: No Alcohol use: none Drug use: none - Gastrointestinal Gastrointestinal: Present: as per HPI - Constitutional Constitutional: as per HPI - EENT Eyes: as per HPI Ears: Present: as per HPI Nose, mouth and throat: Present: as per HPI - Cardiovascular Cardiovascular ROS: Present: as per HPI - Respiratory Respiratory IM: Present: as per HPI - Genitourinary Genitourinary: Absent: change in color, Urinary frequency - Neurological ROS Neurological GI: Present: as per HPI - Hematologic/Lymphatic Hematologic/Lymphatic pediatric: Present: as per HPI - Musculoskeletal Musculoskeletal ROS GI: Present: as per HPI - Integumentary Integumentary GI: Present: as per HPI - Psychiatric ROS Psychiatric GI: Present: as per HPI - Endocrine Endocrine IM: Present: as per HPI - Constitutional Vitals: Temp Pulse Resp BP Pulse Ox 98.0 F 91 18 135/74 94 L 12/08/16 10:41 12/08/16 10:41 12/08/16 10:41 12/08/16 10:41 12/08/16 10:41 General appearance: Present: cooperative, A&O X 3, no acute distress, answers questions appropriately - Head Head exam: Present: atraumatic, normocephalic - Eye Eye exam: Present: normal appearance, sclera anicteric - ENT ENT exam: Present: mucous membranes dry - Neck Neck exam general surgery: Present: normal inspection, trachea midline - Respiratory Respiratory exam: Present: decreased breath sounds, CTAB. Absent: rales, rhonchi - Cardiovascular Cardiovascular exam: Present: RRR, +S1, +S2 - GI/Abdominal GI/Abdominal exam: Present: normal bowel sounds, soft, no peritoneal signs. Absent: distended, firm, guarding, tenderness - Rectal Rectal exam: Present: deferred - Extremities Exam Extremities exam: Present: warm - Neurological Exam Neurological exam: Present: no focal deficits - Psychiatric Psychiatric exam: Present: normal affect, normal mood - Skin Skin exam: Present: dry, intact, normal color, warm Results - Labs CBC & Chem 7: 12/08/16 04:06 12/07/16 00:50 Labs: Last Result Calcium 8.5 mg/dL (8.6-10.8) L 12/07/16 00:50 Troponin I 0.01 ng/mL (0-0.03) 12/07/16 11:00 Triglycerides 153 mg/dL (< 150) H 12/07/16 00:50 Stool Occult Blood Positive (Negative) A 12/06/16 18:10 Entire Visit Hgb 7.6 g/dL (11.5-15.4) L 12/08/16 04:06 Hct 22.6 % (35.3-44.9) L 12/08/16 04:06 PT 12.9 Seconds (9.4-12.1) H 12/08/16 04:06 Total Bilirubin 0.5 mg/dL (0.2-1.2) 12/07/16 00:50 AST 14 Units/L (5-34) 12/07/16 00:50 ALT 18 Units/L (0-55) 12/07/16 00:50 - ABG ABG results: PT/INR, D-dimer PT 12.9 Seconds (9.4-12.1) H 12/08/16 04:06 Consult Discharge Plan - Plan Referrals: NO,PCP [Primary Care Provider] - <Rad Mejia - Last Filed: 12/08/16 14:12> Date of Encounter: 12/08/16 Time of Encounter: 13:15 - Time Spent With Patient Total time spent is greater than 50% in coordination of care (as documented) at patient's floor/unit and/or counseling patient: GI History of Present Illness - Data of Consult Requesting Physician: Lisbeth Lemon - Consult Narrative History of present illness: Ms. Ferrari is a 70 year old female - Constitutional Vitals: Temp Pulse Resp BP Pulse Ox 98.0 F 91 18 135/74 94 L 12/08/16 10:41 12/08/16 10:41 12/08/16 10:41 12/08/16 10:41 12/08/16 10:41 Results - Labs CBC & Chem 7: 12/08/16 04:06 12/07/16 00:50 Labs: Last Result Calcium 8.5 mg/dL (8.6-10.8) L 12/07/16 00:50 Troponin I 0.01 ng/mL (0-0.03) 12/07/16 11:00 Triglycerides 153 mg/dL (< 150) H 12/07/16 00:50 Stool Occult Blood Positive (Negative) A 12/06/16 18:10 Entire Visit Hgb 7.6 g/dL (11.5-15.4) L 12/08/16 04:06 Hct 22.6 % (35.3-44.9) L 12/08/16 04:06 PT 12.9 Seconds (9.4-12.1) H 12/08/16 04:06 Total Bilirubin 0.5 mg/dL (0.2-1.2) 12/07/16 00:50 AST 14 Units/L (5-34) 12/07/16 00:50 ALT 18 Units/L (0-55) 12/07/16 00:50 - ABG ABG results: PT/INR, D-dimer PT 12.9 Seconds (9.4-12.1) H 12/08/16 04:06 - Attending Attestation I examined this patient and my medical decision-making was reviewed with the TIGHTENING MACHINE OPERATOR/PA/Advanced Practice Nurse/Resident Physician. I agree with the documented findings, disposition and treatment plan as described except to the extent set forth below. Patient with multiple comorbidities now with anemia. EGD and if negative then colon tomorrow
--- NOTE | 2016-12-08 12:51 | Anesthesia Evaluation PreOp ---
Date of Encounter: 12/08/16 Time of Encounter: 12:49 - Past History Planned Operation: EGD Cardiac History: [place] (2016), HTN, Hyperlipidemia, Other (Chronic persistant DVT r. leg, iron def. anemia, Rhematic fever,) Pulmonary History: Other (Hx mick. 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: Seizures, Other (Glioblastoma Multiforme of brain, anxiety, Bipolar , Depression) Other Medical History: Renal (CRD), GERD, Other (GI Bleed) Anesthesia History: No Prior Anesthetic Complications, Past Anesthesia (Brain sx 08/24, IVC filter) : No Alcohol Use: none Drug use: none Medications and Allergies Acetaminophen [Tylenol] 500 - 1,000 mg PO Q6H PRN 12/06/16 [History] Citalopram [CeleXA] 20 mg PO DAILY 12/06/16 [History] Dexamethasone 2 mg PO BID 12/06/16 [History] Dexlansoprazole [Dexilant] 30 mg PO DAILY 12/06/16 [History] DiphenhydraMINE [Benadryl] 25 mg PO Q6HR PRN 12/06/16 [History] Fenofibrate Nanocrystallized [Fenofibrate] 145 mg PO HS 12/06/16 [History] Ferrous Sulfate 324 mg PO TIDWM 12/06/16 [History] Gabapentin [Neurontin] 100 mg PO BID 12/06/16 [History] Hydrochlorothiazide 25 mg PO DAILY 12/06/16 [History] LORazepam [Ativan] 0.5 mg PO TID 12/06/16 [History] LevETIRAcetam [Keppra] 1,000 mg PO BID 12/06/16 [History] LevETIRAcetam [Keppra] 250 mg PO BID 12/06/16 [History] Lisinopril [Zestril] 40 mg PO DAILY 12/06/16 [History] Lomustine [Gleostine] 40 mg PO Q42D 12/06/16 [History] Lomustine [Gleostine] 100 mg PO Q42D 12/06/16 [History] Loperamide HCl [Imodium A-D] 2 mg PO Q4H PRN 12/06/16 [History] OxyCODONE Immed Rel [Roxicodone 5 MG] 5 mg PO Q4HR PRN 12/06/16 [History] Oxycodone HCl/Acetaminophen [Percocet 5-325 mg Tablet] 1 - 2 each PO Q4H PRN [History] Polyethylene Glycol 3350 [MiraLAX Powder Bulk 17.9 Oz] 1 scoop PO DAILY [History] Simvastatin [Zocor] 40 mg PO QPM 12/06/16 [History] Tizanidine HCl 4 mg PO TID PRN 12/06/16 [History] Triamcinolone Acet 0.1% CRM [Kenalog] 1 appl TP BID 12/06/16 [History] Allergies aspirin [From Norgesic] Adverse Reaction (Verified 12/06/16 16:48) Hallucinating caffeine [From Norgesic] Adverse Reaction (Verified 12/06/16 16:48) Hallucinating latex Adverse Reaction (Verified 03/15/16 20:33) Itching orphenadrine [From Norgesic] Adverse Reaction (Verified 12/06/16 16:48) Hallucinating Sulfa (Sulfonamide Antibiotics) Adverse Reaction (Verified 03/15/16 20:32) Hives - Meds/Allergy Pre-op Review Medications Reviewed: Yes Allergies Reviewed: Yes Beta Blockers on Current Med List: No Anesthesia Results - Labs 12/08/16 04:06 12/07/16 00:50 - Imaging EKG: image reviewed (SR) Anesthesia Exam O2 Sat Weight 85.3 kg O2 Sat by Pulse Oximetry 94 O2 Sat by Pulse Oximetry 93 O2 Sat by Pulse Oximetry 95 O2 Sat by Pulse Oximetry 99 O2 Sat by Pulse Oximetry 100 O2 Sat by Pulse Oximetry 99 O2 Sat by Pulse Oximetry 96 O2 Sat by Pulse Oximetry 94 O2 Sat by Pulse Oximetry 93 Vital Signs Temp Pulse Resp BP Pulse Ox 98.7 F 93 11 90/53 96 12/06/16 16:35 12/06/16 16:35 12/06/16 16:35 12/06/16 16:35 12/06/16 16:35 Vital Signs/O2 Sat, Most Current Temp Pulse Resp BP Pulse Ox 98.0 F 91 18 135/74 94 L 12/08/16 10:41 12/08/16 10:41 12/08/16 10:41 12/08/16 10:41 12/08/16 10:41 Height: 5'2'' Weight: 188# - HEENT Pupil (Motor): Pupils equal, EOMI Teeth: Missing Denture Type: Upper: Complete Oral Opening: Greater than 3 - SERVICE DESK LEAD LOC: Oriented SERVICE DESK LEAD Motor: Normal RUE, Normal LUE, Normal RLE, Normal LLE, Normal Face SERVICE DESK LEAD Sensory: Normal: RUE, LUE, RLE, LLE, Face - Cardiac Rhythm: Regular Murmur: None JVD: No Carotid Bruit: No - Pulmonary Breath Sounds: bilateral Clear Respiratory Effort: Symmetrical Anesthesia Assess/Plan ASA Score: 4 Modified [place] Scale for Level of Consciousness: Cooperative, oriented, and tranquil Anesthetic Plan: MAC Autologous Blood: Yes Monitoring Plan: Standard Monitors Recovery Plan: Other
[2016-12-08] MEDS ORDERED: 0.9 % Sodium Chloride 1,000 ML IVC SCH (13:30)
[2016-12-08] MEDS ORDERED: *HR* Propofol 200 MG/20 ML VIAL IVP ONE (14:24)
[2016-12-08] MEDS ORDERED: Lidocaine -MPF 2% 5 ML VIAL INFILT ONE (14:24)
--- NOTE | 2016-12-08 16:18 | Internal Med Progress Note ---
Date of Encounter: 12/08/16 Time of Encounter: 16:16 - Assessment and plan (1) Deep vein thrombosis of lower extremity Current Visit: Yes Status: Acute Assessment and plan: has chronic persistnet DVT 2/2 active cancer. not a candidate for AC given recent brain surgery 08/24 s/p IVC filter last admission. will continue to monitor, right leg elevation, no weight bearing at this time. need to treat the underlying cause which is the cancer. Qualifiers: Affected thrombotic vein of extremity: unspecified vein of extremity Laterality: bilateral Chronicity: acute Qualified Code(s): I82.403 - Acute embolism and thrombosis of unspecified deep veins of lower extremity, bilateral (2) GI bleed Current Visit: Yes Status: Acute Assessment and plan: occult blood is positive, patient is taking iron pills s/p EGD today that showed non bleeding angiectasias that has been treated with argon plasma coagulation will monitor cbc tomm, if stable plan dc. Qualifiers: GI bleed type/associated pathology: unspecified gastrointestinal hemorrhage type Qualified Code(s): K92.2 - Gastrointestinal hemorrhage, unspecified (3) Glioblastoma multiforme of brain Current Visit: Yes Status: Acute Assessment and plan: undergoing chemotheray at [facility]. desires to follow up at [place]. spoke with Dr. Jarquin who recommended a CT head and f/u 01/03 on his next appointment. (4) S/P IVC filter Current Visit: Yes Status: Acute - Time Spent With Patient 25 - 35 minutes - Subjective Interval history: seen at the bedside, appears in no respiratory distress. Complains of right leg swelling and pain. doppler showed chronic persistent DVT, s/p IVC filter on her last admisiion denies chest pain , sob, says she has black stool but is on iron pills. EGD today with Dr. Smith , shows non bleeding ulcer that is treated. - Constitutional Vitals: Temp Pulse Resp BP Pulse Ox 98.9 F 83 16 108/58 94 L 12/08/16 14:54 12/08/16 14:54 12/08/16 14:54 12/08/16 14:54 12/08/16 14:54 General appearance: Present: cooperative, A&O X 2. Absent: answers questions appropriately Exam: - Head Head exam: Present: atraumatic, normocephalic - Eye Eye exam: Present: EOMI, PERRL, conjuntiva pink, sclera anicteric Pupils: Present: normal accommodation, PERRL - ENT ENT exam: Present: mucous membranes moist, normal oropharynx - Neck Neck exam general surgery: Present: full ROM, supple, trachea midline. Absent: lymphadenopathy - Respiratory Respiratory exam: Present: decreased breath sounds, CTAB. Absent: accessory muscle use, rales, rhonchi, wheezes - Cardiovascular Cardiovascular exam: Present: distant heart sounds, RRR, +S1, +S2. Absent: diastolic murmur, gallop, rubs, systolic murmur - GI/Abdominal GI/Abdominal exam: Present: normal bowel sounds, soft, no peritoneal signs. Absent: distended, tenderness - Extremities Exam Extremities exam: Present: full ROM, pedal edema, tenderness, warm, radial pulses palpable and symetrical. Absent: calf tenderness, cyanotic - Neurological Exam Neurological exam: Present: alert, altered, CN II-XII intact, no focal deficits. Absent: oriented X3, pronater drift, facial droop, speech deficit - Psychiatric Psychiatric exam: Present: normal affect, normal mood - Skin Skin exam: Present: dry, intact, warm Internal Medicine: Result - Labs CBC & Chem 7: 12/08/16 04:06 12/07/16 00:50 - ABG Interpretation ABG results: PT/INR, D-dimer PT 12.9 Seconds (9.4-12.1) H 12/08/16 04:06 Consult Discharge Plan - Plan Referrals: NO,PCP [Primary Care Provider] -
[2016-12-08] MEDS ORDERED: SODIUM CHLORIDE/NAHCO3/KCL/PEG 4,000 ML SOLN.RECON PO ONE (17:00)
[2016-12-08] MEDS: Fenofibrate 54 MG TABLET PO SCH (20:59)
[2016-12-09] MEDS: 0.9 % Sodium Chloride 1,000 ML IVC SCH ×2 (01:10→15:10)
[2016-12-09 03:26] LABS: Hematocrit 23.5 % (35.3-44.9); Hemoglobin 7.8 g/dL (11.5-15.4); Immature Platelets 3.2 % (1.1-6.1); Mean Corpuscular HGB Conc 33.2 g/dL (31.6-35.5); Mean Corpuscular Hemoglobin 31.7 pg (28.0-33.3); Mean Corpuscular Volume 95.5 fL (83.0-100.0); Mean Platelet Volume 10.4 fL (9.4-12.4); Red Blood Count 2.46 M/mcL (3.82-4.97); Red Cell Distribution Width 15.8 % (11.5-14.5)
[2016-12-09 03:31] LABS: INR 1.2; Prothrombin Time 12.6 Seconds (9.4-12.1)
[2016-12-09 03:33] LABS: Activated Partial Thrombo Time 24.2 Seconds (26.0-36.0)
[2016-12-09] MEDS: *HR* LORazepam 0.5 MG TABLET PO SCH ×3 (08:41→21:26)
[2016-12-09] MEDS: levETIRAcetam 250 MG TABLET PO SCH ×4 (08:41→21:25)
[2016-12-09] MEDS: Gabapentin 100 MG CAPSULE PO SCH ×2 (08:42→21:25)
[2016-12-09] MEDS: Nicotine 21 MG PATCH.TD24 TD SCH (09:00)
[2016-12-09] MEDS: *HR* OxyCODONE Immed Rel 5 MG TABLET PO PRN ×2 (09:00→18:02)
[2016-12-09] MEDS: Lisinopril 20 MG TABLET PO SCH (09:00)
[2016-12-09] MEDS ORDERED: 0.9 % Sodium Chloride 250 ML ONE (11:56)
[2016-12-09] MEDS ORDERED: *HR* FentaNYL (PF) 100 MCG/2 ML VIAL ONE (15:18)
[2016-12-09] MEDS ORDERED: *HR* Midazolam HCl 5 MG/5 ML VIAL IVP ONE (15:18)
[2016-12-09] MEDS ORDERED: Simethicone 40 MG/0.6 ML MLS IR ONE (15:44)
--- NOTE | 2016-12-09 15:54 | Internal Med Progress Note ---
Date of Encounter: 12/09/16 Time of Encounter: 15:52 - Assessment and plan (1) Deep vein thrombosis of lower extremity Current Visit: Yes Status: Acute Assessment and plan: has chronic persistnet DVT 2/2 active cancer. not a candidate for AC given recent brain surgery 08/24 s/p IVC filter last admission. will continue to monitor, right leg elevation, no weight bearing at this time. need to treat the underlying cause which is the cancer. Qualifiers: Affected thrombotic vein of extremity: unspecified vein of extremity Laterality: bilateral Chronicity: acute Qualified Code(s): I82.403 - Acute embolism and thrombosis of unspecified deep veins of lower extremity, bilateral (2) GI bleed Current Visit: Yes Status: Acute Assessment and plan: occult blood is positive, patient is taking iron pills s/p EGD today that showed non bleeding angiectasias that has been treated with argon plasma coagulation, planend for colonoscopy today with DR. Mejia will monitor cbc, transfuse 1 unit prbc today. PT /OT recommnends rehab, will need placement to [facility]. Qualifiers: GI bleed type/associated pathology: unspecified gastrointestinal hemorrhage type Qualified Code(s): K92.2 - Gastrointestinal hemorrhage, unspecified (3) Glioblastoma multiforme of brain Current Visit: Yes Status: Acute Assessment and plan: undergoing chemotheray at [facility]. desires to follow up at [place]. spoke with Dr. Jarquin who recommended a CT head and f/u 01/03 on his next appointment. CT head stable for now. (4) S/P IVC filter Current Visit: Yes Status: Acute - Time Spent With Patient 25 - 35 minutes - Subjective Interval history: seen at the bedside, appears in no respiratory distress. Complains of right leg swelling and pain. doppler showed chronic persistent DVT, s/p IVC filter on her last admisiion denies chest pain , sob, says she has black stool but is on iron pills. EGD with Dr. Mejia , shows non bleeding ulcer that is treated, planned for colonoscopy today. - Constitutional Vitals: Temp Pulse Resp BP Pulse Ox 98.3 F 78 24 133/85 96 12/09/16 14:51 12/09/16 14:51 12/09/16 14:51 12/09/16 14:51 12/09/16 14:51 General appearance: Present: cooperative, A&O X 2. Absent: answers questions appropriately Exam: - Head Head exam: Present: atraumatic, normocephalic - Eye Eye exam: Present: EOMI, PERRL, conjuntiva pink, sclera anicteric Pupils: Present: normal accommodation, PERRL - ENT ENT exam: Present: mucous membranes moist, normal oropharynx - Neck Neck exam general surgery: Present: full ROM, supple, trachea midline. Absent: lymphadenopathy - Respiratory Respiratory exam: Present: decreased breath sounds, CTAB. Absent: accessory muscle use, rales, rhonchi, wheezes - Cardiovascular Cardiovascular exam: Present: distant heart sounds, RRR, +S1, +S2. Absent: diastolic murmur, gallop, rubs, systolic murmur - GI/Abdominal GI/Abdominal exam: Present: normal bowel sounds, soft, no peritoneal signs. Absent: distended, tenderness - Extremities Exam Extremities exam: Present: full ROM, pedal edema, tenderness, warm, radial pulses palpable and symetrical. Absent: calf tenderness, cyanotic - Neurological Exam Neurological exam: Present: alert, altered, CN II-XII intact, no focal deficits. Absent: oriented X3, pronater drift, facial droop, speech deficit - Psychiatric Psychiatric exam: Present: normal affect, normal mood - Skin Skin exam: Present: dry, intact, warm Internal Medicine: Result - Labs CBC & Chem 7: 12/09/16 03:00 12/07/16 00:50 Labs: Short CBC 12/09/16 Range/Units 03:00 WBC 8.2 (4.3-11.1) K/mcL Hgb 7.8 L (11.5-15.4) g/dL Hct 23.5 L (35.3-44.9) % Plt Count 176 (140-400) K/mcL - ABG Interpretation ABG results: PT/INR, D-dimer PT 12.6 Seconds (9.4-12.1) H 12/09/16 03:00 - Impressions Impressions Head CT 12/08/16 16:14 IMPRESSION: Postsurgical changes. No CT evidence of recurrent neoplasm. D/ / Jhon Newsome MD / Jhon Newsome MD Interpreting Provider: Jhon Newsome MD Consult Discharge Plan - Plan Referrals: NO,PCP [Primary Care Provider] -
[2016-12-09] MEDS: *HR* FentaNYL (PF) 100 MCG/2 ML VIAL IVP PRN ×2 (16:03→16:05)
[2016-12-09] MEDS: *HR* Midazolam HCl 5 MG/5 ML VIAL IVP PRN ×2 (16:03→16:05)
[2016-12-09] MEDS ORDERED: 0.9 % Sodium Chloride 1,000 ML IVC SCH (16:15)
[2016-12-09] MEDS: *HR* Morphine 2 MG/ML SYRINGE IVP PRN (21:24)
[2016-12-09] MEDS: Fenofibrate 54 MG TABLET PO SCH (21:25)
[2016-12-10 04:28] LABS: Mean Corpuscular HGB Conc 34.8 g/dL (31.6-35.5); Mean Corpuscular Hemoglobin 31.4 pg (28.0-33.3); Mean Corpuscular Volume 90.3 fL (83.0-100.0); Mean Platelet Volume 9.8 fL (9.4-12.4); Platelet Count 190 K/mcL (140-400); Red Blood Count 2.99 M/mcL (3.82-4.97)
[2016-12-10 04:33] LABS: Hemoglobin 9.4 g/dL (11.5-15.4)
[2016-12-10 04:34] LABS: INR 1.2; Prothrombin Time 13.5 Seconds (9.4-12.1)
[2016-12-10 04:37] LABS: Activated Partial Thrombo Time 24.2 Seconds (26.0-36.0)
[2016-12-10] MEDS: 0.9 % Sodium Chloride 1,000 ML IVC SCH ×2 (08:59→20:11)
[2016-12-10] MEDS: Lisinopril 20 MG TABLET PO SCH (08:59)
[2016-12-10] MEDS: levETIRAcetam 250 MG TABLET PO SCH ×4 (09:00→20:19)
[2016-12-10] MEDS: *HR* LORazepam 0.5 MG TABLET PO SCH ×3 (09:01→20:20)
[2016-12-10] MEDS: Gabapentin 100 MG CAPSULE PO SCH ×2 (09:01→20:19)
[2016-12-10] MEDS: Nicotine 21 MG PATCH.TD24 TD SCH (09:02)
--- NOTE | 2016-12-10 10:50 | Internal Med Progress Note ---
Date of Encounter: 12/10/16 Time of Encounter: 10:48 - Assessment and plan (1) Deep vein thrombosis of lower extremity Current Visit: Yes Status: Acute Assessment and plan: has chronic persistnet DVT 2/2 active cancer. not a candidate for AC given recent brain surgery 08/24 s/p IVC filter last admission. will continue to monitor, right leg elevation, no weight bearing at this time. need to treat the underlying cause which is the cancer. will adjust pain meds for better pain control Qualifiers: Affected thrombotic vein of extremity: unspecified vein of extremity Laterality: bilateral Chronicity: acute Qualified Code(s): I82.403 - Acute embolism and thrombosis of unspecified deep veins of lower extremity, bilateral (2) GI bleed Current Visit: Yes Status: Acute Assessment and plan: occult blood is positive, patient is taking iron pills s/p EGD ,that showed non bleeding angiectasias that has been treated with argon plasma coagulation, colonoscopy showed diverticulosis with internal hemorrhoids s/p 1 unit prbc , h/h better at 9.4 today PT /OT recommnends rehab, will need placement to ECF. Qualifiers: GI bleed type/associated pathology: unspecified gastrointestinal hemorrhage type Qualified Code(s): K92.2 - Gastrointestinal hemorrhage, unspecified (3) Glioblastoma multiforme of brain Current Visit: Yes Status: Acute Assessment and plan: undergoing chemotheray at [facility]. desires to follow up at [place]. spoke with Dr. Jarquin who recommended a CT head and f/u 01/03 on his next appointment. CT head stable for now. (4) S/P IVC filter Current Visit: Yes Status: Acute - Time Spent With Patient 25 - 35 minutes - Subjective Interval history: seen at the bedside, appears in no respiratory distress. Complains of perisstent right leg swelling and pain as expected. doppler showed chronic persistent DVT, s/p IVC filter on her last admisiion denies chest pain , sob, EGD with Dr. Smith , shows non bleeding ulcer that is treated, colonoscopy yest showed diverticulosis and internal hemorrhoids - Constitutional Vitals: Temp Pulse Resp BP Pulse Ox 99.6 F 77 16 144/73 93 L 12/10/16 07:46 12/10/16 07:46 12/10/16 07:46 12/10/16 07:46 12/10/16 07:46 General appearance: Present: cooperative, A&O X 2. Absent: answers questions appropriately Exam: - Head Head exam: Present: atraumatic, normocephalic - Eye Eye exam: Present: EOMI, PERRL, conjuntiva pink, sclera anicteric Pupils: Present: normal accommodation, PERRL - ENT ENT exam: Present: mucous membranes moist, normal oropharynx - Neck Neck exam general surgery: Present: full ROM, supple, trachea midline. Absent: lymphadenopathy - Respiratory Respiratory exam: Present: decreased breath sounds, CTAB. Absent: accessory muscle use, rales, rhonchi, wheezes - Cardiovascular Cardiovascular exam: Present: distant heart sounds, RRR, +S1, +S2. Absent: diastolic murmur, gallop, rubs, systolic murmur - GI/Abdominal GI/Abdominal exam: Present: normal bowel sounds, soft, no peritoneal signs. Absent: distended, tenderness - Extremities Exam Extremities exam: right leg swollen and calf tenderness, no signs of compartmental syndrome, b/l peripheral pulses palpable - Neurological Exam Neurological exam: Present: alert, altered, CN II-XII intact, no focal deficits. Absent: oriented X3, pronater drift, facial droop, speech deficit - Psychiatric Psychiatric exam: Present: normal affect, normal mood - Skin Skin exam: Present: dry, intact, warm Internal Medicine: Result - Labs CBC & Chem 7: 12/10/16 03:58 12/07/16 00:50 Labs: Short CBC 12/10/16 Range/Units 03:58 WBC 8.1 (4.3-11.1) K/mcL Hgb 9.4 L D (11.5-15.4) g/dL Hct 27.0 L (35.3-44.9) % Plt Count 190 (140-400) K/mcL - ABG Interpretation ABG results: PT/INR, D-dimer PT 13.5 Seconds (9.4-12.1) H 12/10/16 03:58 Consult Discharge Plan - Plan Referrals: NO,PCP [Primary Care Provider] -
[2016-12-10] MEDS: Fenofibrate 54 MG TABLET PO SCH (20:19)
[2016-12-11 05:44] LABS: Hematocrit 25.5 % (35.3-44.9); Hemoglobin 8.7 g/dL (11.5-15.4); Mean Corpuscular HGB Conc 34.1 g/dL (31.6-35.5); Mean Corpuscular Hemoglobin 31.4 pg (28.0-33.3); Mean Corpuscular Volume 92.1 fL (83.0-100.0); Mean Platelet Volume 9.9 fL (9.4-12.4); Platelet Count 186 K/mcL (140-400); Red Blood Count 2.77 M/mcL (3.82-4.97); Red Cell Distribution Width 14.6 % (11.5-14.5)
[2016-12-11 05:50] LABS: INR 1.4; Prothrombin Time 14.9 Seconds (9.4-12.1)
[2016-12-11 05:52] LABS: Activated Partial Thrombo Time 26.6 Seconds (26.0-36.0)
[2016-12-11] MEDS: 0.9 % Sodium Chloride 1,000 ML IVC SCH ×2 (05:59→16:08)
[2016-12-11] MEDS: *HR* OxyCODONE Immed Rel 5 MG TABLET PO PRN ×2 (07:44→22:09)
[2016-12-11] MEDS: levETIRAcetam 250 MG TABLET PO SCH ×4 (07:45→22:01)
[2016-12-11] MEDS: *HR* LORazepam 0.5 MG TABLET PO SCH ×3 (07:47→22:00)
[2016-12-11] MEDS: Gabapentin 100 MG CAPSULE PO SCH ×2 (07:47→22:01)
[2016-12-11] MEDS: Lisinopril 20 MG TABLET PO SCH (07:47)
[2016-12-11] MEDS: Nicotine 21 MG PATCH.TD24 TD SCH (07:48)
--- NOTE | 2016-12-11 11:49 | Internal Med Progress Note ---
Date of Encounter: 12/11/16 Time of Encounter: 11:41 - Assessment and plan (1) Deep vein thrombosis of lower extremity Current Visit: Yes Status: Acute Assessment and plan: has chronic persistnet DVT 2/2 active cancer. not a candidate for AC given recent brain surgery 08/24 s/p IVC filter last admission. will continue to monitor, right leg elevation, no weight bearing at this time. need to treat the underlying cause which is the cancer. Qualifiers: Affected thrombotic vein of extremity: unspecified vein of extremity Laterality: bilateral Chronicity: acute Qualified Code(s): I82.403 - Acute embolism and thrombosis of unspecified deep veins of lower extremity, bilateral (2) GI bleed Current Visit: Yes Status: Acute Assessment and plan: occult blood is positive, patient is taking iron pills s/p EGD ,that showed non bleeding angiectasias that has been treated with argon plasma coagulation, colonoscopy showed diverticulosis with internal hemorrhoids s/p 1 unit prbc at this admission, h/h at 8.7 today PT /OT recommnends rehab, will need placement to ECF. Qualifiers: GI bleed type/associated pathology: unspecified gastrointestinal hemorrhage type Qualified Code(s): K92.2 - Gastrointestinal hemorrhage, unspecified (3) Glioblastoma multiforme of brain Current Visit: Yes Status: Acute Assessment and plan: undergoing chemotheray at [facility]. desires to follow up at [place]. spoke with Dr. Jarquin who recommended a CT head and f/u 01/03 on his next appointment. CT head stable for now. (4) S/P IVC filter Current Visit: Yes Status: Acute - Time Spent With Patient 25 - 35 minutes - Subjective Interval history: seen at the bedside, appears in no respiratory distress. Complains of perisstent right leg swelling and pain as expected. doppler showed chronic persistent DVT, s/p IVC filter on her last admisiion denies chest pain , sob, EGD with Dr. Smith , shows non bleeding ulcer that is treated, colonoscopy showed diverticulosis and internal hemorrhoids, slight drop in hb today - Constitutional Vitals: Temp Pulse Resp BP Pulse Ox 98.3 F 62 18 117/70 94 L 12/11/16 08:06 12/11/16 08:06 12/11/16 08:06 12/11/16 08:06 12/11/16 08:06 General appearance: Present: cooperative, A&O X 2. Absent: answers questions appropriately Exam: - Head Head exam: Present: atraumatic, normocephalic - Eye Eye exam: Present: EOMI, PERRL, conjuntiva pink, sclera anicteric Pupils: Present: normal accommodation, PERRL - ENT ENT exam: Present: mucous membranes moist, normal oropharynx - Neck Neck exam general surgery: Present: full ROM, supple, trachea midline. Absent: lymphadenopathy - Respiratory Respiratory exam: Present: decreased breath sounds, CTAB. Absent: accessory muscle use, rales, rhonchi, wheezes - Cardiovascular Cardiovascular exam: Present: distant heart sounds, RRR, +S1, +S2. Absent: diastolic murmur, gallop, rubs, systolic murmur - GI/Abdominal GI/Abdominal exam: Present: normal bowel sounds, soft, no peritoneal signs. Absent: distended, tenderness - Extremities Exam Extremities exam: right leg swollen and calf tenderness, no signs of compartmental syndrome, b/l peripheral pulses palpable - Neurological Exam Neurological exam: Present: alert, altered, CN II-XII intact, no focal deficits. Absent: oriented X3, pronater drift, facial droop, speech deficit - Psychiatric Psychiatric exam: Present: normal affect, normal mood - Skin Skin exam: Present: dry, intact, warm Internal Medicine: Result - Labs CBC & Chem 7: 12/11/16 05:08 12/07/16 00:50 Labs: Short CBC 12/11/16 Range/Units 05:08 WBC 6.9 (4.3-11.1) K/mcL Hgb 8.7 L (11.5-15.4) g/dL Hct 25.5 L (35.3-44.9) % Plt Count 186 (140-400) K/mcL - ABG Interpretation ABG results: PT/INR, D-dimer PT 14.9 Seconds (9.4-12.1) H 12/11/16 05:08 Consult Discharge Plan - Plan Referrals: NO,PCP [Primary Care Provider] -
[2016-12-11] MEDS: Fenofibrate 54 MG TABLET PO SCH (22:00)
[2016-12-12] MEDS ORDERED: Acetaminophen IV 1,000 MG/100 ML INFUS..BTL IVPB STA (01:12)
[2016-12-12] MEDS: 0.9 % Sodium Chloride 1,000 ML IVC SCH (03:13)
[2016-12-12] MEDS: Acetaminophen 325 MG TABLET PO SCH ×2 (06:11→11:34)
[2016-12-12 08:33] LABS: Basophils % 0.1 %; Eosinophils % 0.3 %; Immature Granulocytes % 0.5 % (0-4); Lymphocytes # 0.5 K/mcL (0.6-4.6); Lymphocytes % 6.7 %; Mean Corpuscular Hemoglobin 32.6 pg (28.0-33.3); Mean Corpuscular Volume 90.6 fL (83.0-100.0); Mean Platelet Volume 9.7 fL (9.4-12.4); Monocytes # 0.8 K/mcL (0.0-1.3); Monocytes % 10.8 %; Neutrophils # 5.9 K/mcL (1.6-8.9); Platelet Count 186 K/mcL (140-400); Red Blood Count 2.76 M/mcL (3.82-4.97); Red Cell Distribution Width 14.6 % (11.5-14.5); Segmented Neutrophils % 81.6 %
[2016-12-12 08:48] LABS: BUN/Creatinine Ratio 19 (6-26); Blood Urea Nitrogen 10 mg/dL (7-20); Calcium 8.4 mg/dL (8.6-10.8); Carbon Dioxide 23 mEq/L (19-29); Chloride 107 mEq/L (98-109); Glucose 88 mg/dL (70-99); Osmolality,Calculated 288 (280-300); Sodium 140 mEq/L (136-145); eGFR For African Americans > 60 (> 60); eGFR For Non-African Americans > 60 (> 60)
[2016-12-12 08:54] LABS: INR 1.3; Prothrombin Time 14.4 Seconds (9.4-12.1)
[2016-12-12 08:57] LABS: Activated Partial Thrombo Time 25.4 Seconds (26.0-36.0)
[2016-12-12] MEDS: Gabapentin 100 MG CAPSULE PO SCH (09:47)
[2016-12-12] MEDS: *HR* LORazepam 0.5 MG TABLET PO SCH (09:49)
[2016-12-12] MEDS: Lisinopril 20 MG TABLET PO SCH (09:49)
[2016-12-12] MEDS: levETIRAcetam 250 MG TABLET PO SCH ×2 (09:49→09:50)
[2016-12-12] MEDS: Nicotine 21 MG PATCH.TD24 TD SCH (09:50)
[2016-12-12 10:49] VITALS: BP 112/60
[2016-12-12] MEDS ORDERED: Potassium Chloride Elixir 20 MEQ/15 ML UDC PO SCH (12:45)
--- NOTE | 2016-12-12 12:46 | Discharge Summary ---
Date of Encounter: 12/12/16 Time of Encounter: 12:41 - Discharge Diagnosis (1) Deep vein thrombosis of lower extremity Priority: Primary Status: Acute Qualifiers: Affected thrombotic vein of extremity: unspecified vein of extremity Laterality: bilateral Chronicity: acute Qualified Code(s): I82.403 - Acute embolism and thrombosis of unspecified deep veins of lower extremity, bilateral (2) GI bleed Priority: Primary Status: Acute Qualifiers: GI bleed type/associated pathology: unspecified gastrointestinal hemorrhage type Qualified Code(s): K92.2 - Gastrointestinal hemorrhage, unspecified (3) Glioblastoma multiforme of brain Priority: Secondary Status: Acute (4) S/P IVC filter Priority: Secondary Status: Acute - Discharge Medications Prescriptions: OxyCODONE Immed Rel [Roxicodone 5 MG] 5 mg PO Q4HR PRN #30 tablet PRN Reason: Pain LORazepam [Ativan] 0.5 mg PO TID #90 tablet Home Medications: Acetaminophen [Tylenol] 500 - 1,000 mg PO Q6H PRN 12/06/16 [History] Citalopram [CeleXA] 20 mg PO DAILY 12/06/16 [History] Dexamethasone 2 mg PO BID 12/06/16 [History] Dexlansoprazole [Dexilant] 30 mg PO DAILY 12/06/16 [History] DiphenhydraMINE [Benadryl] 25 mg PO Q6HR PRN 12/06/16 [History] Fenofibrate Nanocrystallized [Fenofibrate] 145 mg PO HS 12/06/16 [History] Ferrous Sulfate 324 mg PO TIDWM 12/06/16 [History] Gabapentin [Neurontin] 100 mg PO BID 12/06/16 [History] Hydrochlorothiazide 25 mg PO DAILY 12/06/16 [History] LevETIRAcetam [Keppra] 1,000 mg PO BID 12/06/16 [History] LevETIRAcetam [Keppra] 250 mg PO BID 12/06/16 [History] Lisinopril [Zestril] 40 mg PO DAILY 12/06/16 [History] Lomustine [Gleostine] 40 mg PO Q42D 12/06/16 [History] Lomustine [Gleostine] 100 mg PO Q42D 12/06/16 [History] Loperamide HCl [Imodium A-D] 2 mg PO Q4H PRN 12/06/16 [History] OxyCODONE Immed Rel [Roxicodone 5 MG] 5 mg PO Q4HR PRN 12/06/16 [History] Oxycodone HCl/Acetaminophen [Percocet 5-325 mg Tablet] 1 - 2 each PO Q4H PRN [History] Polyethylene Glycol 3350 [MiraLAX Powder Bulk 17.9 Oz] 1 scoop PO DAILY [History] Simvastatin [Zocor] 40 mg PO QPM 12/06/16 [History] Tizanidine HCl 4 mg PO TID PRN 12/06/16 [History] Triamcinolone Acet 0.1% CRM [Kenalog] 1 appl TP BID 12/06/16 [History] LORazepam [Ativan] 0.5 mg PO TID #90 tablet 12/12/16 [Rx] OxyCODONE Immed Rel [Roxicodone 5 MG] 5 mg PO Q4HR PRN #30 tablet 12/12/16 [Rx] Allergies/Adverse Reactions: Allergies aspirin [From Norgesic] Adverse Reaction (Verified 12/06/16 16:48) Hallucinating caffeine [From Norgesic] Adverse Reaction (Verified 12/06/16 16:48) Hallucinating latex Adverse Reaction (Verified 03/15/16 20:33) Itching orphenadrine [From Norgesic] Adverse Reaction (Verified 12/06/16 16:48) Hallucinating Sulfa (Sulfonamide Antibiotics) Adverse Reaction (Verified 03/15/16 20:32) Hives Date of admission: 12/08/16 11:20 Primary care physician: PCP NO Discharging clinician: Lisbeth Lemon Anticipated date of discharge: 12/12/16 - Patient Status Disposition: Home, Self-Care Condition: Fair Functional capacity at discharge: uses cane/walker Overall status at discharge: patient is back to baseline - Discharge Instructions Follow Up With: Konstantin Moscoso [Other] - 12/19/16 1:00 pm - Diet and Activity Activity: as per physical therapy, resume usual activities as tolerated Diet: advance to your usual diet Interval History: Ms. Ferrari is a 70 year old female with PMHx of glioblastoma multiforme undergoing chemotherapy at [facility], seizure disorder, HTN, HLD, GERD, iron deficiency, constipation, bilateral PEs, DVTs presented to the ED with complaints of pain and swelling in the right lower extremity. In September 2016 patient was diagnosed with glioblastoma multiforme at [facility]. At presentation she was also found to have small bilateral PEs as well as bilateral LE DVTs. Inferior vena cava filter was placed. Doppler showed chronic persistent DVT. Patient reports black stool but is on iron pills. FOBT positive. Hgb 10.3 on admission which dropped to 7.6 Procedures: Colonoscopy 02/13/[address] Bobo nonspecific inflammation at the rectosigmoid junction. EGD 02/12/[address] Bobo with mild nonspecific duodenitis. NSAIDs: None Anticoagulation: None was consulted and she underwent EGD.s/p EGD today that showed non bleeding angiectasias that has been treated with argon plasma coagulation Repeat CBC showed stable hemoglobin. has chronic persistnet DVT 2/2 active cancer. not a candidate for AC given recent brain surgery 08/24 s/p IVC filter last admission. will continue to monitor, right leg elevation, no weight bearing at this time. need to treat the underlying cause which is the cancer. undergoing chemotheray at [facility]. desires to follow up at [place]. spoke with Dr. Jarquin who recommended a CT head and f/u 01/03 on his next appointment. CT head has no acute changes Patient was seen by PTOT consult, it was recommended that she be discharged to inpatient rehabilitation. She is being discharged today to inpatient rehabilitation in stable condition. Hospital course: Ms. Ferrari is a 70 year old female Time spent discussing smoking cessation with patient: more than 10 minutes - Time Spent with Patient Total time spent providing and/or coordinating discharge services: Greater than 30 minutes - Constitutional Vitals: Temp Pulse Resp BP Pulse Ox 97.4 F L 74 18 112/60 96 12/12/16 10:48 12/12/16 10:48 12/12/16 10:48 12/12/16 10:48 12/12/16 10:48 General appearance: Present: cooperative, A&O X 2. Absent: answers questions appropriately Exam: - Head Head exam: Present: atraumatic, normocephalic - Eye Eye exam: Present: EOMI, PERRL, conjuntiva pink, sclera anicteric Pupils: Present: normal accommodation, PERRL - ENT ENT exam: Present: mucous membranes moist, normal oropharynx - Neck Neck exam general surgery: Present: full ROM, supple, trachea midline. Absent: lymphadenopathy - Respiratory Respiratory exam: Present: decreased breath sounds, CTAB. Absent: accessory muscle use, rales, rhonchi, wheezes - Cardiovascular Cardiovascular exam: Present: distant heart sounds, RRR, +S1, +S2. Absent: diastolic murmur, gallop, rubs, systolic murmur - GI/Abdominal GI/Abdominal exam: Present: normal bowel sounds, soft, no peritoneal signs. Absent: distended, tenderness - Extremities Exam Extremities exam: Present: full ROM, pedal edema, tenderness, warm, radial pulses palpable and symetrical. Absent: calf tenderness, cyanotic - Neurological Exam Neurological exam: Present: alert, altered, CN II-XII intact, no focal deficits. Absent: oriented X3, pronater drift, facial droop, speech deficit - Psychiatric Psychiatric exam: Present: normal affect, normal mood - Skin Skin exam: Present: dry, intact, warm
--- NOTE | 2016-12-12 15:08 | Physician Discharge Referral ---
ExtendedCare Referral Info Transfer To: [facility] Provider in Charge: valentino fernandes Institutional Level of Care: Intermediate - MR - Diagnosis (1) Deep vein thrombosis of lower extremity Status: Acute (2) GI bleed Status: Acute (3) Glioblastoma multiforme of brain Status: Acute (4) S/P IVC filter Status: Acute - Transfer Medications Prescriptions: OxyCODONE Immed Rel [Roxicodone 5 MG] 5 mg PO Q4HR PRN #30 tablet PRN Reason: Pain LORazepam [Ativan] 0.5 mg PO TID #90 tablet Home Medications: Acetaminophen [Tylenol] 500 - 1,000 mg PO Q6H PRN 12/06/16 [History] Citalopram [CeleXA] 20 mg PO DAILY 12/06/16 [History] Dexamethasone 2 mg PO BID 12/06/16 [History] Dexlansoprazole [Dexilant] 30 mg PO DAILY 12/06/16 [History] DiphenhydraMINE [Benadryl] 25 mg PO Q6HR PRN 12/06/16 [History] Fenofibrate Nanocrystallized [Fenofibrate] 145 mg PO HS 12/06/16 [History] Ferrous Sulfate 324 mg PO TIDWM 12/06/16 [History] Gabapentin [Neurontin] 100 mg PO BID 12/06/16 [History] Hydrochlorothiazide 25 mg PO DAILY 12/06/16 [History] LevETIRAcetam [Keppra] 1,000 mg PO BID 12/06/16 [History] LevETIRAcetam [Keppra] 250 mg PO BID 12/06/16 [History] Lisinopril [Zestril] 40 mg PO DAILY 12/06/16 [History] Lomustine [Gleostine] 40 mg PO Q42D 12/06/16 [History] Lomustine [Gleostine] 100 mg PO Q42D 12/06/16 [History] Loperamide HCl [Imodium A-D] 2 mg PO Q4H PRN 12/06/16 [History] OxyCODONE Immed Rel [Roxicodone 5 MG] 5 mg PO Q4HR PRN 12/06/16 [History] Oxycodone HCl/Acetaminophen [Percocet 5-325 mg Tablet] 1 - 2 each PO Q4H PRN [History] Polyethylene Glycol 3350 [MiraLAX Powder Bulk 17.9 Oz] 1 scoop PO DAILY [History] Simvastatin [Zocor] 40 mg PO QPM 12/06/16 [History] Tizanidine HCl 4 mg PO TID PRN 12/06/16 [History] Triamcinolone Acet 0.1% CRM [Kenalog] 1 appl TP BID 12/06/16 [History] LORazepam [Ativan] 0.5 mg PO TID #90 tablet 12/12/16 [Rx] OxyCODONE Immed Rel [Roxicodone 5 MG] 5 mg PO Q4HR PRN #30 tablet 12/12/16 [Rx] Allergies/Adverse Reactions: Allergies aspirin [From Norgesic] Adverse Reaction (Verified 12/06/16 16:48) Hallucinating caffeine [From Norgesic] Adverse Reaction (Verified 12/06/16 16:48) Hallucinating latex Adverse Reaction (Verified 03/15/16 20:33) Itching orphenadrine [From Norgesic] Adverse Reaction (Verified 12/06/16 16:48) Hallucinating Sulfa (Sulfonamide Antibiotics) Adverse Reaction (Verified 03/15/16 20:32) Hives - Respiratory Orders Smoking Cessation: Smoking cessation has been advised. For more information, call the [place] Tobacco Quit Line at 8-373-HQRA-NOW. - Advance Directives Code Status: Full Code - Mobility Orders Chair - Rehabiliation Orders Rehab Potential: Fair Rehab Orders: Evaluation for Physical Therapy, Evaluation for Occupational Therapy - Diet Orders Regular CERTIFICATION: I certify that the transfer of the above named patient to an Extended Care Facility is necessary for the continuing treatment of the diagnosis listed. The above information is true and accurate reflection of patient's current condition. Confidential - Redisclosure prohibited without a patient's written consent.
== END 2016-12-12 15:18 | disposition home or self-care (01) | DRG 299 ==
LOC: 3ANU 16:33 → EMEROO 16:33 → 3ANU 21:07
PROVIDERS: ADMIT Internal Medicine Sleep Medicine; ATTEND Internal Medicine Endocrinology, Diabetes & Metabolism